=== PATIENT | female | born 1955 | race Caucasian/White ===

== ENCOUNTER 2018-02-25 09:50 | Emergency (ER) | payer MEDICARE, OTHER ==
[~2018-02-25] VITALS: Ht 157.5 cm; Wt 65.8 kg
[~2018-02-25 09:50] MED LIST: GLUCOPHAGE; HYDROCODONE-AP1 EAC1; NITROFURANTOIN; QUINAPRIL; TRICOR; Z.0.GLUCOPHAGE1000 M; Z.0.NEXIUM40 M1; Z.0.TRICOR145 MG; Z.0.URIBEL CAPSULE1; Z.1.NITROFURANTOIN10; [UNRECOGNIZED DRUG - OTHER]
--- OUTSIDE RECORDS SUMMARY | 2018-02-25 09:53 | XMS REPORT ---
Author Author [facility] Address Unknown Phone Unavailable Care Team Providers Care Woven Blind Loom Tender Name Role Phone AJIT WEISS Unavailable Unavailable Problems This patient has no known problems. Allergies, Adverse Reactions, Alerts This patient has no known allergies or adverse reactions. Medications This patient has no known medications. Results Test Description Test Time Test Comments Text Results Atomic Results Result Comments ABDOMEN-1VIEW (KUB) [place] [id number] Patient Name: NASIR BOOTH MR #: [id number] : 1955 Age/Sex: 61/F Req # : [id number] Adm Physician: Ordered by: AJIT WEISS MD Report #: [id number] Location: [facility] Room/Bed: Procedure: [id number] DX/ABDOMEN-1VIEW (KUB) Exam Date: 11/04/17 Exam Time : 1035 REPORT STATUS: Signed PROCEDURE: ABDOMEN-1VIEW (KUB) TECHNIQUE: Supine AP abdomen totaling 2 radiographs INDICATION: Calculus of kidney COMPARISON: [facility], DX, ABDOMEN-1VIEW (KUB), , 7:17. FINDINGS: Stable faint scattered renal calcifications consistent with medullary nephrocalcinosis. No definite focal nephrolithiasis. Normal bowel gas pattern. Multilevel degenerative disc disease with stable apex right scoliosis.. Cholecystectomy clips. CONCLUSION: Nephrocalcinosis without conspicuous focal nephrolithiasis. Dictated by: Shivani Prakash M.D. on 11/04/2017 at 11:09 Electronically approved by: Shivani Prakash M.D. on 11/04/2017 at 11:09 Dictated By: SHIVANI PRAKASH MD [id number] Transcribed By: KAMRON on 11/04/17 1109 COPY TO: AJIT WEISS MD
[2018-02-25] MEDS ORDERED: TRAMADOL HCL 50 MG TAB PO ONE (10:15)
[2018-02-25 16:15] VITALS: BP 177/81
== END 2018-02-25 14:11 | disposition home or self-care (01) ==
LOC: ER 09:50
DX: S83.412A Sprain of medial collateral ligament of left knee, initial encounter (principal); S83.422A Sprain of lateral collateral ligament of left knee, initial encounter; I82.5Z1 Chronic embolism and thrombosis of unspecified deep veins of right distal lower extremity; W18.30XA Fall on same level, unspecified, initial encounter; Y99.0 Civilian activity done for income or pay; E78.5 Hyperlipidemia, unspecified
CPT/HCPCS: 93970; 99283

== ENCOUNTER 2018-02-26 22:05 | Emergency (ER) | payer MEDICARE, OTHER ==
[~2018-02-26] VITALS: Ht 157.5 cm; Wt 65.8 kg
--- OUTSIDE RECORDS SUMMARY | 2018-02-26 22:08 | XMS REPORT | Continuity of Care Document ---
Author Author [facility] Organization [facility] Address [address] [place] [address] Phone Unavailable Care Team Providers Care Train System Operator Name Role Phone MARY ANNE MARTINEZ MD PCP Insurance Providers Guarantor Nasir Booth Address [address] [place] [address] Email [email or web address] Payer Medicare A & B Policy Number [id number] Subscriber's Name Nasir Booth Relationship 18 Self / Same As Patient Group Name [facility] Effective Date 13 Payer [facility] Policy Number [id number] Subscriber's Name DesireeNasir Relationship 18 Self / Same As Patient Group Name [place] Effective Date 01 Advance Directives Directive Response Recorded Date/Time Does the patient have an advance directive? No 11/29/11 12:05pm If yes, is advance directive on file with [facility]? No 11/29/11 12:05pm If not on file with [facility] will patient provide a copy? No 11/29/11 12:05pm Do you have a Directive to Physician? No 02/25/18 10:10am Do you have a Medical Power of Sales Broker? No 02/25/18 10:10am Do you have an out of hospital Do Not Resuscitate Order? No 02/25/18 10:10am Do you have any special needs we should be aware of? No 02/25/18 10:10am Do you have a support person here with you today? Yes 02/25/18 10:10am Did patient receive Notice of Privacy Practices? Yes 02/25/18 10:10am Did patient receive patient rights and responsibilities? Yes 02/25/18 10:10am Problems No problem information available. Medications Current Home Medications Medication Dose Units Route Directions Days Qty Instructions Start Date Fenofibrate Nanocrystallized (Tricor) 145 Mg Tablet Daily Metformin Hcl (Glucophage) 1,000 Mg Tablet Bid Quinapril/Hydrochlorothiazide (Accuretic 20-12.5 Mg Tablet) 1 Each Tablet Daily Social History Social History Problem Response Recorded Date/Time Onset Date Status Hx Psychiatric Problems No 11/29/2011 12:05pm Not Applicable Not Applicable Smoking Status Start Date Stop Date Never Smoker Hospital Discharge Instructions No hospital discharge instruction information available. Plan of Care Discharge Date 02/25/18 2:11pm Disposition HOME, SELF-CARE Condition at Discharge Stable Instructions/Education Provided Knee Overuse Forms Provided Work/School Excuse Prescriptions See Medication Section Referrals MARY ANNE MARTINEZ MD Address: [address] [place] [address] [address] [place] [address] MACK ZAVALA MD Address: [address] [place] [address] [address] [place] [address] Additional Instructions/Education 1. follow up with your doctor / orthopedic doctor in 1-2 days without fail 2. return to ed as needed Functional Status No functional status information available. Allergies, Adverse Reactions, Alerts No known allergies. Immunizations No immunization information available. Vital Signs Acute Vital Signs Vital Response Date/Time Pulse Pulse Rate (adult) 89 bpm (60 - 90) 02/25/2018 4:15pm Respiratory Rate 20 bpm (12 - 24) 02/25/2018 4:15pm Blood Pressure 177/81 mm Hg 02/25/2018 4:15pm Height 5 ft 2 in 02/25/2018 10:05am Weight 145 lb 02/25/2018 10:05am Body Mass Index 26.5 kg/m^2 02/25/2018 10:05am Results No relevant diagnostic test, laboratory data and/or discharge summary information available. Procedures No procedure information available. Encounters Encounter Location Arrival/Admit Date Discharge/Depart Date Attending Provider Departed Emergency Room [facility] 02/25/18 9:50am 2:11pm ANNETTE HOOKER MD Registered Clinic [facility] 11/04/17 10:28am AJIT WEISS MD Registered Clinic [facility] 06/12/17 7:02am AJIT WEISS MD
[2018-02-26 22:44] LABS: BASOPHILS % 0.5 % (0.0-1.0); EOSINOPHILS # (AUTO) 0.2 (0.0-0.4); EOSINOPHILS % 5.3 % (0.0-6.0); HEMATOCRIT 25.3 % (34.2-44.1); HEMOGLOBIN 8.4 g/dL (12.0-16.0); LYMPHOCYTES # (AUTO) 1.4 (1.0-3.2); LYMPHOCYTES % 32.1 % (18.0-39.1); MEAN CORPUSCULAR HEMOGLOBIN 29.9 pg (28-32); MEAN CORPUSCULAR HGB CONC 33.2 g/dL (31-35); MONOCYTES # (AUTO) 0.5 (0.2-0.8); MONOCYTES % 11.1 % (4.4-11.3); NEUTROPHILS # (AUTO) 2.2 (2.1-6.9); NEUTROPHILS % 50.3 % (38.7-80.0); PLATELET COUNT 330 x10e3/uL (140-360); RED BLOOD COUNT 2.81 x10e6/uL (3.6-5.1); RED CELL DISTRIBUTION WIDTH 14.8 % (11.7-14.4)
[2018-02-26 23:04] LABS: ALBUMIN 3.7 g/dL (3.5-5.0); ANION GAP 16.7 mmol/L (8-16); CALCIUM 9.3 mg/dL (8.4-10.2); CREATININE, SERUM 2.56 mg/dL (0.57-1.11); POTASSIUM 4.7 mmol/L (3.5-5.1)
[2018-02-26 23:09] VITALS: BP 170/85
== END 2018-02-26 23:16 | disposition home or self-care (01) ==
LOC: ER 22:05
DX: M19.071 Primary osteoarthritis, right ankle and foot (principal); I10 Essential (primary) hypertension; E11.9 Type 2 diabetes mellitus without complications; N18.9 Chronic kidney disease, unspecified
CPT/HCPCS: 36415; 80053; 85025; 99283

== ENCOUNTER 2018-03-07 02:15 | Inpatient (IN) | payer MEDICARE, OTHER ==
[~2018-03-07] VITALS: Ht 160 cm; Wt 64.9 kg
--- OUTSIDE RECORDS SUMMARY | 2018-03-07 02:19 | XMS REPORT | Continuity of Care Document ---
Author Author [facility] Organization [facility] Address [address] [place] [address] Phone Unavailable Care Team Providers Care Chemical Dependency Counselor Name Role Phone MARY ANNE MARTINEZ MD PCP Insurance Providers Guarantor Nasir Booth Address [address] [place] [address] Email [email or web address] Payer Medicare A & B Policy Number [id number] Subscriber's Name JaredpatrickNasir Relationship 18 Self / Same As Patient Group Name [facility] Effective Date 13 Payer [facility] Policy Number [id number] Subscriber's Name DesireeNasir Relationship 18 Self / Same As Patient Group Name [place] Effective Date 01 Advance Directives Directive Response Recorded Date/Time Does the patient have an advance directive? No 11/29/11 12:05pm If yes, is [facility]? No 11/29/11 12:05pm If not on file with [facility] will patient provide a copy? No 11/29/11 12:05pm Problems No problem information available. Medications Current [...] information available. Plan of Care Discharge Date 02/26/18 11:16pm Disposition HOME, SELF-CARE Condition at Discharge Stable Instructions/Education Provided Osteoarthritis Forms Provided Work/School Excuse Prescriptions See Medication Section Additional Instructions/Education FOLLOW UP WITH PRIMARY CARE PHYSICIAN Functional Status No functional status information available. Allergies, Adverse Reactions, Alerts No known allergies. Immunizations No immunization information available. Vital Signs Acute Vital Signs Vital Response Date/Time Temperature (Fahrenheit) 98.5 degrees F (97.6 - 99.5) 02/26/2018 11:09pm Pulse Pulse Rate (adult) 93 bpm (60 - 90) 02/26/2018 11:09pm Respiratory Rate 17 bpm (12 - 24) 02/26/2018 11:09pm Blood Pressure 170/85 mm Hg 02/26/2018 11:09pm Height 5 ft 2 in 02/26/2018 10:14pm Weight 145 lb 02/26/2018 10:14pm Body Mass Index 26.5 kg/m^2 02/26/2018 10:14pm Results Laboratory Results Test Name Result Units Flags Reference Collection Date/Time Result Date/ Time Comments White Blood Count 4.33 x10e3/uL L 4.8-10.8 02/26/2018 10:30pm 2017 10:47pm Red Blood Count 2.81 x10e6/uL L 3.6-5.1 02/26/2018 10:30pm 02/26/2018 10 :47pm Hemoglobin 8.4 g/dL L 12.0-16.0 02/26/2018 10:30pm 02/26/2018 10:47pm Hematocrit 25.3 % L 34.2-44.1 02/26/2018 10:30pm 02/26/2018 10:47pm Mean Corpuscular Volume 90.0 fL 81-99 02/26/2018 10:30pm 02/26/2018 10: 47pm Mean Corpuscular Hemoglobin 29.9 pg 28-32 02/26/2018 10:30pm 2017 10:47pm Mean Corpuscular Hemoglobin Concent 33.2 g/dL 31-35 02/26/2018 10:30pm 02/26/2018 10:47pm Red Cell Distribution Width 14.8 % H 11.7-14.4 02/26/2018 10:30pm 2017 10:47pm Platelet Count 330 x10e3/uL 140-360 02/26/2018 10:30pm 02/26/2018 10: 47pm Neutrophils (%) (Auto) 50.3 % 38.7-80.0 02/26/2018 10:30pm 02/26/2018 10:47pm Lymphocytes (%) (Auto) 32.1 % 18.0-39.1 02/26/2018 10:30pm 02/26/2018 10:47pm Monocytes (%) (Auto) 11.1 % 4.4-11.3 02/26/2018 10:30pm 02/26/2018 10: 47pm Eosinophils (%) (Auto) 5.3 % 0.0-6.0 02/26/2018 10:30pm 02/26/2018 10: 47pm Basophils (%) (Auto) 0.5 % 0.0-1.0 02/26/2018 10:30pm 02/26/2018 10: 47pm IM GRANULOCYTES % 0.7 % 0.0-1.0 02/26/2018 10:30pm 02/26/2018 10:47pm Neutrophils # (Auto) 2.2 2.1-6.9 02/26/2018 10:30pm 02/26/2018 10: 47pm Lymphocytes # (Auto) 1.4 1.0-3.2 02/26/2018 10:30pm 02/26/2018 10: 47pm Monocytes # (Auto) 0.5 0.2-0.8 02/26/2018 10:30pm 02/26/2018 10:47pm Eosinophils # (Auto) 0.2 0.0-0.4 02/26/2018 10:30pm 02/26/2018 10: 47pm Basophils # (Auto) 0.0 0.0-0.1 02/26/2018 10:30pm 02/26/2018 10:47pm Absolute Immature Granulocyte (auto 0.03 x10e3/uL 0-0.1 02/26/2018 10: 30pm 02/26/2018 10:47pm Sodium Level 137 mmol/L 136-145 02/26/2018 10:30pm 02/26/2018 11:05pm Potassium Level 4.7 mmol/L 3.5-5.1 02/26/2018 10:30pm 02/26/2018 11: 05pm Chloride Level 105 mmol/L 98-107 02/26/2018 10:30pm 02/26/2018 11:05pm Carbon Dioxide Level 20 mmol/L L 22-02/26/2018 10:30pm 02/26/2018 11: 05pm Anion Gap 16.7 mmol/L H 8-16 02/26/2018 10:30pm 02/26/2018 11:05pm Blood Urea Nitrogen 39 mg/dL H 7-02/26/2018 10:30pm 02/26/2018 11: 05pm Creatinine 2.56 mg/dL H 0.57-1.11 02/26/2018 10:30pm 02/26/2018 11:05pm BUN/Creatinine Ratio 15 6-02/26/2018 10:30pm 02/26/2018 11:05pm Estimat Glomerular Filtration Rate 19 ML/MIN L 60- 02/26/2018 10:30pm 11:05pm Ranges were taken from the National Kidney Disease Education Program and the National Kidney Foundation literature. Reference ranges: 60 or greater: Normal 16-59 (for 3 consecutive months): Chronic kidney disease 15 or less: Kidney failure Glucose Level 87 mg/dL 74-118 02/26/2018 10:30pm 02/26/2018 11:05pm Calcium Level 9.3 mg/dL 8.4-10.2 02/26/2018 10:30pm 02/26/2018 11:05pm Total Bilirubin 0.4 mg/dL 0.2-1.2 02/26/2018 10:30pm 02/26/2018 11: 05pm Aspartate Amino Transf (AST/SGOT) 30 IU/L 5-34 02/26/2018 10:30pm 02/26 11:05pm Alanine Aminotransferase (ALT/SGPT) 29 IU/L 0-55 02/26/2018 10:30pm 11:05pm Total Protein 7.5 g/dL 6.5-8.1 02/26/2018 10:30pm 02/26/2018 11:05pm Albumin 3.7 g/dL 3.5-5.0 02/26/2018 10:30pm 02/26/2018 11:05pm Globulin 3.8 g/dL H 2.3-3.5 02/26/2018 10:30pm 02/26/2018 11:05pm Albumin/Globulin Ratio 1.0 0.8-2.0 02/26/2018 10:30pm 02/26/2018 11: 05pm Alkaline Phosphatase 110 IU/L 40-150 02/26/2018 10:30pm 02/26/2018 11: 05pm Procedures No procedure information available. Encounters Encounter Location Arrival/Admit Date Discharge/Depart Date Attending Provider Departed Emergency Room [facility] 02/26/18 10:05pm 02/26 11:16pm LENNY KRUSE MD Departed Emergency Room [facility] 02/25/18 9:50am 2:11pm ANNETTE HOOKER MD Registered Clinic [facility] 11/04/17 10:28am AJIT WEISS MD Registered Clinic [facility] 06/12/17 7:02am AJIT WEISS MD
[2018-03-07] MEDS ORDERED: ACETAMINOPHEN 1000 MG/100 ML IV STA (02:25)
[2018-03-07] MEDS ORDERED: CEFTRIAXONE SOD 1 GM VIAL IV ONE (02:30)
[2018-03-07] MEDS ORDERED: SODIUM CHLORIDE 0.9% 1000ML 1,000 ML IV ONE ×2 (02:30→04:45)
[2018-03-07 02:47] LABS: BASOPHILS % 0.1 % (0.0-1.0); EOSINOPHILS % 0.1 % (0.0-6.0); HEMATOCRIT 25.1 % (34.2-44.1); HEMOGLOBIN 8.4 g/dL (12.0-16.0); LYMPHOCYTES # (AUTO) 0.2 (1.0-3.2); LYMPHOCYTES % 1.7 % (18.0-39.1); MEAN CORPUSCULAR HEMOGLOBIN 29.9 pg (28-32); MEAN CORPUSCULAR HGB CONC 33.5 g/dL (31-35); MEAN CORPUSCULAR VOLUME 89.3 fL (81-99); MONOCYTES # (AUTO) 0.5 (0.2-0.8); MONOCYTES % 3.8 % (4.4-11.3); NEUTROPHILS # (AUTO) 12.6 (2.1-6.9); NEUTROPHILS % 93.9 % (38.7-80.0); PLATELET COUNT 257 x10e3/uL (140-360); RED BLOOD COUNT 2.81 x10e6/uL (3.6-5.1); RED CELL DISTRIBUTION WIDTH 14.6 % (11.7-14.4)
[2018-03-07 03:01] LABS: CLARITY,URINE CLEAR (CLEAR); COLOR,URINE YELLOW (YELLOW)
[2018-03-07 03:02] LABS: BILIRUBIN,URINE NEGATIVE (NEGATIVE); EPITHELIAL CELLS,URINE FEW /LPF; KETONES,URINE NEGATIVE (NEGATIVE); LEUKOCYTE ESTERASE ,URINE NEGATIVE (NEGATIVE); NITRITE,URINE NEGATIVE (NEGATIVE); PROTEIN,URINE DIPSTICK 3+ (NEGATIVE); RBC,URINE 0-5 /HPF (0-5); URINE UROBILINOGEN 0.2 mg/dL (0.2 - 1); WBC,URINE (MAN) 0-5 /HPF (0-5)
[2018-03-07 03:05] LABS: ALBUMIN 3.5 g/dL (3.5-5.0); ANION GAP 17.9 mmol/L (8-16); CALCIUM 9.2 mg/dL (8.4-10.2); CREATININE, SERUM 2.34 mg/dL (0.57-1.11); POTASSIUM 4.9 mmol/L (3.5-5.1)
[2018-03-07 03:11] LABS: ALBUMIN/GLOBULIN RATIO 0.9 (0.8-2.0)
[2018-03-07 03:12] LABS: CREATINE KINASE MB 1.2 ng/mL (0-5.0)
[2018-03-07] MEDS ORDERED: SODIUM CHLORIDE 0.9% 1000ML 1,000 ML ONE (04:39)
--- NOTE | 2018-03-07 05:00 | Diagnostic Imaging Report ---
EXAMINATION: CHEST SINGLE (PORTABLE) INDICATION: Fever. COMPARISON: None FINDINGS: TUBES and LINES: None. LUNGS: Lungs are well inflated. Lungs are clear. There is no evidence of pneumonia or pulmonary edema. PLEURA: No pleural effusion or pneumothorax. HEART AND MEDIASTINUM: The cardiomediastinal silhouette is unremarkable. BONES AND SOFT TISSUES: No acute osseous lesion. Soft tissues are unremarkable. UPPER ABDOMEN: No free air under the diaphragm. IMPRESSION: No acute thoracic abnormality. Signed by: Dr. Talha Todd M.D. on 03/07/2018 4:57 AM
--- NOTE | 2018-03-07 05:05 | Diagnostic Imaging Report ---
EXAM: CT Abdomen and Pelvis WITHOUT contrast INDICATION: Left flank pain. COMPARISON: 05/19/2012 TECHNIQUE: Abdomen and pelvis were scanned utilizing a multidetector helical scanner from the lung base to the pubic symphysis without administration of IV contrast. Absence of intravenous contrast decreases sensitivity for detection of focal lesions and vascular pathology. Coronal and sagittal reformations were obtained. Stone protocol is performed. IV CONTRAST: None. ORAL CONTRAST: Water RADIATION DOSE: Total DLP: 471.91 mGy*cm Estimated effective dose: (DLP x 0.015 x size factor) mSv COMPLICATIONS: None FINDINGS: LINES and TUBES: None. LOWER THORAX: Unremarkable HEPATOBILIARY: No focal hepatic lesions. No biliary ductal dilation. GALLBLADDER: There are cholecystectomy clips. SPLEEN: No splenomegaly. PANCREAS: No focal masses or ductal dilatation. ADRENALS: No adrenal nodules KIDNEYS/URETERS: No hydronephrosis. No cystic or solid mass lesions. Hyperdensity throughout the level of the renal pyramids compatible with Nephrocalcinosis bilaterally. At the tip of each care met, there are calcific densities compatible with developing stones ranging between 2 and 3 mm in diameter. GI TRACT: No abnormal distention, wall thickening, or evidence of bowel obstruction. There are diverticula within the colon without evidence of diverticulitis. Appendix is normal. PELVIC ORGANS/BLADDER: Right adnexal mass measuring 8.2 x 5.4 cm in diameter with areas of irregular calcification and internal septations measuring 28HU LYMPH NODES: No lymphadenopathy. VESSELS: There is mild atherosclerotic disease in the aorta and major arterial branches. PERITONEUM / RETROPERITONEUM: No free air or fluid. BONES: There are degenerative changes in the lumbar spine. SOFT TISSUES: Unremarkable. IMPRESSION: 1. Bilateral nephrocalcinosis with developing stones ranging between 2 and 3 mm in diameter. No evidence of hydronephrosis. 2. Right adnexal mass, indeterminate. Pelvic ultrasound is recommended Signed by: Dr. Talha Todd M.D. on 03/07/2018 5:02 AM
[2018-03-07] MEDS ORDERED: VANCOMYCIN 1GM/NS 250 ML 250 ML IV STA (06:50)
[2018-03-07] MEDS ORDERED: METRONIDAZOLE 500MG/NS 100ML 100 ML IV STA (06:50)
--- NOTE | 2018-03-07 07:00 | Diagnostic Imaging Report ---
EXAM: Transabdominal and Transvaginal Pelvic Ultrasound INDICATION: Right adnexal mass COMPARISON: CT of the abdomen and pelvis on 03/07/2018 and 05/19/2012 TECHNIQUE: Grayscale transverse and sagittal transabdominal and transvaginal images were obtained of the pelvis. Transvaginal imaging was medically necessary to better evaluate the endometrium and the adnexa. CLINICAL HISTORY: 62 year old A0; last menstrual period: Postmenopausal. FINDINGS: Uterus Orientation: Normal Size: 9.6 x 5.1 x 6.7 cm, Normal Mass: None Cervix: Normal Endometrium: Thickness: 1.3 cm, Normal. Appearance: Homogeneous echotexture without focal thickening. Right ovary: Not well visualized. Left ovary: Size: 3.9 x 2.4 x 2.7 cm Mass/Cyst: None Adnexa: Within the left adnexum, there is a cystic mass with linear septations and calcifications measuring 11.6 x 6.1 x 9.5 cm with the largest cystic component measuring 7 x 5.2 x 6.6 cm Cul-de-sac: No free fluid IMPRESSION: Cystic lesion in the right adnexum is suspicious for a large para ovarian cyst versus cystic ovarian neoplasm. Full CLICKER OPERATOR workup is recommended including pelvic MRI with and without contrast for identification of the right ovary. Signed by: Dr. Talha Todd M.D. on 03/07/2018 6:56 AM
[2018-03-07] MEDS ORDERED: ONDANSETRON HCL INJ 2 MG/ML VIAL IV PRN (07:30)
[2018-03-07] MEDS ORDERED: SODIUM CHLORIDE FLUSH 10 ML SYR INJ PRN (07:30)
[2018-03-07 09:10] VITALS: BP 163/72
--- NOTE | 2018-03-07 09:24 | History and Physical ---
Ms. Ramírez is a 62-year-old female with a history of diabetes, hypertension, hyperlipidemia, chronic kidney disease, history of kidney stones in the past, started like 2-3 weeks ago with lower extremity pain and difficulty walking. Bilateral arterial Doppler was negative. Had a CT of the lumbar spine that showed some spinal stenosis at L4-L5. Brought to the emergency room yesterday complaining of severe low back pain. PAST MEDICAL HISTORY: She has diabetes, hypertension, hyperlipidemia, chronic kidney disease, history of kidney stones. ALLERGIES: NO KNOWN DRUG ALLERGIES. SOCIAL HISTORY: She does not smoke. She does not drink. She lives at home with her family. SURGICAL HISTORY: , surgery for kidney stones and cholecystectomy. PHYSICAL EXAMINATION GENERAL: Today, she is awake. VITALS: Temperature is 98.8, blood pressure 110/57. HEART: Regular rate. LUNGS: Clear to auscultation. ABDOMEN: Distended and soft. BLOOD WORK: White count is 13.47, hemoglobin 8.4, hematocrit 25.1. Potassium is 4.9, creatinine 2.34. GFR is 21. Liver enzymes are elevated at 289 and ALT is 87. Urine shows some trace of blood. Urine cultures and blood cultures are pending. Pelvic ultrasound shows cystic lesion in the right ovary. Rule out cystic versus neoplasm. She had a chest x-ray that shows no acute findings. She had an abdominal and pelvic CT that showed bilateral nephrocalcinosis with stones measuring 2-3 mm in diameter. No hydronephrosis. She has a right adnexal mass. ASSESSMENT AND PLAN 1. Severe low back pain and lower extremity pain: Rule out spinal stenosis. 2. Right ovarian mass. 3. Chronic kidney disease, stage 4. 4. Anemia, probably secondary to chronic kidney disease. 5. Leukocytosis, not very clear the etiology. PLAN: Admit the patient to the hospital. We are going to get an SAMPLE GRINDER with Dr. Cortez. We are going to get an infectious disease consult with Dr. Murphy. We are going to get a renal consult with Dr. Lan. We are going to restart some of her home medications. She received 1 g of Rocephin in the emergency room. She is on Zofran for nausea and vomiting. We are going to put her on an ADA diet and sliding scale with insulin. All of this was discussed with the patient. All questions were answered to satisfaction. Will continue to monitor her. We are going to request also an MRI of the lumbar spine and pelvis. Job#: [id number] [place]
[2018-03-07 09:36] VITALS: BP 163/72
--- NOTE | 2018-03-07 11:08 | Consultation ---
DATE OF CONSULTATION: March 07, 2018 REASON FOR CONSULTATION: Fever. This is a 62-year-old white female who has a history of diabetes mellitus, hypertension, hyperlipidemia, chronic kidney disease, renal stones in the past, status post surgery in the past. This patient for the last 3 weeks or so has been having lower extremity pain, bilateral and difficulty walking. The pain started from the back going down. The patient has been seeing her physician as an outpatient. She had a Doppler which was negative. She had CT of the lumbar spine that showed spinal stenosis L4-L5. She had severe back pain. CT of the abdomen and pelvis was done, and showed there is a pelvic mass. Infectious disease was consulted because she was running fever. This patient does feel when the fever comes on. She was told she had fever she said. She denied any other symptoms besides the pain in the legs, which seems to be getting better with her pain medication while she is here. She is also having some difficulty walking. PAST MEDICAL HISTORY: Diabetes mellitus, hypertension, hyperlipidemia, kidney stones, chronic kidney disease. PAST SURGICAL HISTORY: . She had knee kidney surgery for her kidney stone. ALLERGIES: NKA. SOCIAL HISTORY: There is no smoking, drug abuse or alcohol abuse. FAMILY HISTORY: Hypertension. REVIEW OF SYSTEMS GENERAL: She is generally feeling fair. There is no fever. No chills that she can feel. No night sweats. HEENT: There is no headache or visual changes or hearing changes. GI: There is no nausea. No vomiting. No diarrhea. CARDIAC: There is no arrhythmia. NEURO: No seizure activity. SKIN: There is no rash. LABORATORY DATA: Reviewed. White count 13.47, hemoglobin 8.4 and her platelets are 257,000. Sodium 139, potassium 4.9, creatinine 2.34. Bilirubin 1.4, AST 289. Blood cultures and urine cultures still pending. Her CT of the abdomen and pelvis showed bilateral nephrocalcinosis with developing stones ranging between 2-3 mm. Right adnexal mass. Pelvic ultrasound is recommended. Pelvic ultrasound was done and showed the cystic lesion in the right adnexa suspicious for large paraovarian cyst versus ovarian neoplasm. She had a chest x-ray with no acute significant abnormality. IMPRESSION 1. Fever on admission. I think it is very suspicious that the patient has malignancy. Clinically, it is very suggestive of it. I would suggest while we wait for the blood cultures and urine cultures to start on Rocephin and discontinue all other antibiotics. 2. Ovarian cyst: Suggest TRAUMA MANAGER evaluation. 3. Elevated liver enzymes: Concerned intrahepatic obstruction. 4. Chronic kidney disease. 5. Anemia of chronic disease. Will discuss with Dr. Martel. Thank you for asking me to see this patient. Job#: [id number] RI
[2018-03-07] MEDS ORDERED: SODIUM BICARBONATE IV SCH (12:15)
[2018-03-07] MEDS ORDERED: SODIUM CHLORIDE IV SCH (12:15)
[2018-03-07 12:16] VITALS: BP 155/72
[2018-03-07] MEDS ORDERED: TRAMADOL HCL 50 MG TAB PO ONE (12:30)
[2018-03-07] MEDS ORDERED: SODIUM BICARBONATE 8.4% 75 ML in SODIUM CHLORIDE 0.45% 1,000 ML IV SCH (13:00)
[2018-03-07] MEDS ORDERED: DEXTROSE 50% SYRINGE 50 ML IV PRN (13:45)
[2018-03-07] MEDS ORDERED: HYDROCODONE/APAP 5MG-325MG TAB PO PRN (13:45)
--- NOTE | 2018-03-07 13:45 | Diagnostic Imaging Report ---
MRI of the pelvis without contrast. History: Pelvic pain. Back pain. Fever. Technique: Multiplanar multisequence MRI of the pelvis without contrast. Findings: There is no acute fracture, subluxation or avascular necrosis. Scattered degenerative changes are seen. No osseous erosion. There is a large anterior abdominal wall hernia containing bowel and mesentery. There is an 8.1 cm heterogeneous mass in the right anterior lower abdomen/upper pelvis best seen on series 3 image 17. This is located 2.4 cm deep to the skin surface. This appears to contain a portion of fat signal intensity and may be associated with the right ovary/right adnexa. A pelvic ultrasound with attention to this region is recommended. The urinary bladder and remainder of the visualized pelvic structures are unremarkable. No free pelvic fluid or pelvic lymphadenopathy is seen. There is what appears to be a small left adnexal complex cyst best seen on series 3 image 30. There is diffuse muscle atrophy. The visualized neurovascular structures are intact. Impression: 8.1 cm heterogeneous mass right anterior lower abdomen/upper pelvis may be associated with the right ovary/right adnexa. This could be due to a dermoid. A pelvic ultrasound with attention to this region is recommended. No acute fracture, subluxation or avascular process about the pelvis. Large anterior lower abdominal wall hernia. Signed by: Dr. Qasim Veloz M.D. on 03/07/2018 1:42 PM
--- NOTE | 2018-03-07 14:26 | Diagnostic Imaging Report ---
EXAM: Transabdominal and Transvaginal Pelvic Ultrasound INDICATION: Right adnexal mass COMPARISON: CT of the abdomen and pelvis on 03/07/2018 and 05/19/2012 TECHNIQUE: Grayscale transverse and sagittal transabdominal and transvaginal images were obtained of the pelvis. Transvaginal imaging was medically necessary to better evaluate the endometrium and the adnexa. CLINICAL HISTORY: 62 year old A0; last menstrual period: Postmenopausal. FINDINGS: Uterus Orientation: Normal Size: 9.6 x 5.1 x 6.7 cm, Normal Mass: None Cervix: Normal Endometrium: Thickness: 1.3 cm, Normal. Appearance: Homogeneous echotexture without focal thickening. Right ovary: Not well visualized. Left ovary: Size: 3.9 x 2.4 x 2.7 cm Mass/Cyst: None Adnexa: Within the left adnexum, there is a cystic mass with linear septations and calcifications measuring 11.6 x 6.1 x 9.5 cm with the largest cystic component measuring 7 x 5.2 x 6.6 cm Cul-de-sac: No free fluid IMPRESSION: Cystic lesion in the right adnexum is suspicious for a large para ovarian cyst versus cystic ovarian neoplasm. Full PATTERN STAMPER workup is recommended including pelvic MRI with and without contrast for identification of the right ovary. Signed by: Dr. Talha Todd M.D. on 03/07/2018 6:56 AM
--- NOTE | 2018-03-07 14:46 | Consultation ---
DATE OF CONSULTATION: March 07, 2018 NEPHROLOGY CONSULTATION REASON FOR CONSULTATION: Chronic kidney disease. This is a very pleasant, 62-year-old female who is known to have multiple medical problems including hypertension, diabetes, and dyslipidemia for which she takes metformin, and she is on MARIZA inhibitor quinapril with hydrochlorothiazide for blood pressure control. She follows with Dr. Martel as an outpatient. Lately, she has been told that she is having chronic kidney disease between stage 3 and 4. She does not recall her baseline creatinine. She was referred to us in clinic as an outpatient. Today was her appointment, but she could not make it as she came to the ER complaining of back pain and subjective fever. She has been taking Lyrica for pain and Tylenol Extra Strength but avoiding nonsteroidal anti-inflammatory drugs. The pain was still there, and she came for further evaluation for which imaging showed that she has spinal stenosis at L4-L5. However, also, the pelvic ultrasound showed ovarian cyst and possible mass. She had an abdomen and pelvis CT without contrast that showed bilateral nephrocalcinosis and right adnexal mass. The patient is known to have nephrolithiasis for which she follows with Dr. Alcantara. She is status post lithotripsy, and she is status post in the past surgical resection of a big kidney stone in the left ureter. We are consulted given her creatinine is elevated. Going back in the records, she had creatinine of 2.56 in January. Today her creatinine is 2.34. PAST MEDICAL HISTORY: As mentioned above. PAST SURGICAL HISTORY: Status post cholecystectomy. Status post . Status post kidney stone removal. FAMILY HISTORY: Positive for hypertension. SOCIAL HISTORY: Denies smoking, alcohol or IV drug abuse. ALLERGIES: NEGATIVE PER RECORDS. PHYSICAL EXAMINATION VITALS: Blood pressure 163/72, heart rate 96, temperature 97.7. GENERAL APPEARANCE: No acute distress times 3. HEAD, EARS, EYES, NECK: No lymphadenopathy. HEART: Regular rate and rhythm. LUNGS: Bilateral air entry. ABDOMEN: Soft, nontender. EXTREMITIES: No edema. LABS: Hemoglobin is 8.4, white count 13.47. Sodium 139, potassium 4.9, BUN 62, creatinine 2.3. Lactic acid 13.6. AST and ALT are elevated. Albumin is 3.5. Chest x-ray is okay and clear. CT is as mentioned above. Urine is positive for protein. ASSESSMENT AND PLAN 1. Acute kidney injury versus chronic kidney disease. I suspect she has chronic kidney disease secondary to diabetic nephropathy. She was told as an outpatient by Dr. Martel she has stage 3 to 4 chronic kidney disease. Will try to get the record. In the meantime, last month her creatinine was 2.56, today is 2.34, which is considered close probably to her baseline. In the meantime, we are going to hold MARIZA inhibitor and hydrochlorothiazide. We are going to give gentle IV hydration and monitor her kidney function and urine output closely. Check fractional excretion of sodium. Check urine culture and renal ultrasound given history of nephrolithiasis, although the CT scan showed no hydronephrosis. We will hold metformin in the meantime. 2. Electrolytes. Potassium is 4.9. Educated about low potassium diet. Make diet renal. 3. Metabolic acidosis. I am holding metformin and in the meantime giving IV bicarb with IV fluids overnight. 4. Hypertension. Holding MARIZA inhibitor and hydrochlorothiazide until creatinine plateaus. I discussed with the patient if her creatinine is stable at baseline in the next couple of days, we will put her back on MARIZA inhibitor. In the meantime, we can add calcium channel alfonzo or beta alfonzo for blood pressure control. 5. Anemia of chronic disease. Hemoglobin 8.4. Check iron stores and stool occult. 6. Proteinuria. We will check urine protein to creatinine ratio. Check serum protein electrophoresis. 7. Diabetes. Will take off metformin and put her sliding scale per primary team. 8. Back pain with stenosis. Avoid nonsteroidal anti-inflammatory drugs. 9. Right adnexal mass suspicious for malignancy. Patient is having subjective fever for which infectious disease is consulted, and blood culture has been sent. It could be malignancy. Oncology has been consulted on the case. Thank you for the consult. We will update the primary team for further recommendations. Job#: [id number]
--- NOTE | 2018-03-07 14:50 | Diagnostic Imaging Report ---
History:Evaluate for malignant neoplasm Comparison studies: None Technique: Sagittal T1, T2 and STIR without contrast; axial and coronal T2. Findings: Curvature: Normal kyphosis. Levoscoliosis of the thoracolumbar junction. Paraspinal soft tissues: No signal abnormalities. Spinal cord: Normal in size and signal intensity through the tip of the conus at T12-L1 . Vertebrae: Normal in height and signal intensity. No fractures, infection or neoplasm. Disk spaces: Normal in height and signal intensity. Disk herniations: Diffuse disc degeneration with loss of T2 signal Foramina: Patent. Spinal canal: Patent. Partially visualized 1.5 cm right renal cyst. IMPRESSION: 1. No neoplastic process is seen at the thoracic spine. 2. Mild disc degeneration with grossly patent canal and foramina Signed by: DR Sujit Washington M.D. on 03/07/2018 2:46 PM
[2018-03-07 14:58] LABS: CREATININE,URINE RANDOM 24.81 mg/dL (47-110); SODIUM,URINE 91 mmol/L; TOTAL PROTEIN, URINE 127.8 mg/dL (1-14)
[2018-03-07 16:16] LABS: EOSINOPHIL SMEAR,URINE NONE SEEN (NONE SEEN)
[2018-03-07] MEDS: SODIUM BICARBONATE 8.4% 75 ML in SODIUM CHLORIDE 0.45% 1,000 ML IV SCH (16:25)
[2018-03-07 16:40] VITALS: BP 152/69
[2018-03-07] MEDS ORDERED: CARVEDILOL 12.5 MG TAB PO SCH (17:00)
--- NOTE | 2018-03-07 17:25 | Diagnostic Imaging Report ---
PROCEDURE:US RETROPERITONEAL ( KIDNEY ). COMPARISON:[facility], CT, CT ABDOMEN/PELVIS WO, 03/07/2018, 3:16. MR, MRI SPINE LUMBAR WO, 03/07/2018, 7:24. INDICATIONS:NEVA TECHNIQUE: Nguyen-scale and color sonographic images of the bilateral kidneys and bladder where obtained in transverse and longitudinal planes. FINDINGS: RIGHT KIDNEY: 10.3 cm, cortex 1.2 cm Cysts: Stable 1.4 x 1.0 x 1.2 cm cystic anechoic lesion in the superior pole Solid masses: None Stones: None Hydronephrosis: None Echogenicity: Increased LEFT KIDNEY: 13.4 cm, cortex 1.3 cm Cysts: None Solid masses: None Stones: None Hydronephrosis: Mild hydronephrosis. Echogenicity: Increased Bladder: No focal lesions. Bilateral ureteral jets are identified. CONCLUSION: 1. Increased bilateral renal cortical echogenicity, consistent with medical renal disease. 2. Mild left hydronephrosis. 3. Stable 1.4 cm simple cyst in the superior pole of the right kidney. Leroy Al M.D. Dictated by: Leroy Al M.D. on 03/07/2018 at 17:25 Electronically approved by: Leroy Al M.D. on 03/07/2018 at 17:25
[2018-03-07] MEDS ORDERED: MEROPENEM 500MG 500 MG in SODIUM CHLORIDE 0.9% 50ML 50 ML IV SCH (18:00)
[2018-03-07] MEDS: INSULIN REGULAR, HUMAN 100 UNIT/1 ML 3ML VIAL SQ SCH ×2 (18:00→21:00)
[2018-03-07] MEDS: MEROPENEM 500 MG VIAL IV SCH (18:05)
[2018-03-07] MEDS: CARVEDILOL 12.5 MG TAB PO SCH (18:05)
[2018-03-07] MEDS ORDERED: NICOTINE POLACRILEX 2 MG LOZG #24 MM PRN (18:15)
[2018-03-07] MEDS ORDERED: CEPACOL SORE THROAT LOZENGES PO PRN (18:15)
[2018-03-07 19:20] VITALS: BP 134/58
[2018-03-07 20:00] VITALS: BP 134/58
--- NOTE | 2018-03-07 20:28 | Diagnostic Imaging Report ---
EXAMINATION: MRI of the lumbar spine without contrast HISTORY: Low back pain for the last 3 weeks, fever, evaluate for infection, neoplasm COMPARISON: Abdomen CT performed 05/19/2012 and 4617 TECHNIQUE: Sagittal T1, T2, STIR; axial T2 and proton density. Image quality: Motion artifact limits evaluation of some of the sequences FINDINGS: It is assumed that there are 5 lumbar vertebrae. Curvature/Alignment: Normal lordosis. Mild levoscoliosis. Vertebrae: No evidence of recent fracture, infection, or neoplasm. Conus: Normal, terminating at L1 Cauda equina: Unremarkable. Lower thoracic: Asymmetric to the right disc osteophyte at T12-L1 with mild to moderate right foraminal stenoses. Paraspinal soft tissues: Severe atrophy of the paraspinal muscles. The visualized T2 hyperintense probable cyst in the right kidney, please see dictation of abdominal CT performed on the same date regarding the canal Degenerative changes: L1-L2: Asymmetric to right disc bulge, marginal endplate osteophyte and facet processes. Minimal right foraminal narrowing. L2-L3: Minimal symmetric disc bulge without canal or foraminal stenoses L3-L4: Asymmetric to the right disc pole which in the lateral facet arthrosis. Moderate right foraminal stenoses L4-L5: Asymmetric to right disc bulge, ligamenta flava thickening and a by facet arthrosis. Severe spinal canal stenosis. Moderately severe foraminal stenosis bilaterally. Grade 1 anterolisthesis. L5-S1: Mild symmetric disc bulge, moderate facet arthrosis. Mild left foraminal stenoses. Sacroiliac joints: Mild degenerative changes bilaterally IMPRESSION: 1. No evidence of spine infection or neoplasm. 2. Persistent grade 1 degenerative anterolisthesis at L4-L5 and lumbar spine with scoliosis. 3. Severe degenerative spinal canal and moderately severe foraminal stenosis at L4-L5. 4. Moderate degenerative foraminal stenoses on the right at L3-L4. Signed by: Dr. Bibiana Campoverde M.D. on 03/07/2018 8:25 PM
[2018-03-08] VITALS (8 sets, daily range): BP systolic 108–154; BP diastolic 55–72
[2018-03-08] MEDS: MEROPENEM 500 MG VIAL IV SCH ×4 (00:25→17:55)
[2018-03-08] MEDS: SODIUM BICARBONATE 8.4% 75 ML in SODIUM CHLORIDE 0.45% 1,000 ML IV SCH (05:24)
[2018-03-08 07:18] LABS: BASOPHILS % 0.2 % (0.0-1.0); EOSINOPHILS # (AUTO) 0.1 (0.0-0.4); EOSINOPHILS % 1.9 % (0.0-6.0); LYMPHOCYTES # (AUTO) 0.7 (1.0-3.2); MEAN CORPUSCULAR HEMOGLOBIN 30.2 pg (28-32); MEAN CORPUSCULAR VOLUME 91.7 fL (81-99); MONOCYTES # (AUTO) 0.3 (0.2-0.8); MONOCYTES % 6.1 % (4.4-11.3); NEUTROPHILS # (AUTO) 4.2 (2.1-6.9); NEUTROPHILS % 78.2 % (38.7-80.0); PLATELET COUNT 193 x10e3/uL (140-360); RED BLOOD COUNT 2.05 x10e6/uL (3.6-5.1); RED CELL DISTRIBUTION WIDTH 14.9 % (11.7-14.4)
[2018-03-08] MEDS: INSULIN REGULAR, HUMAN 100 UNIT/1 ML 3ML VIAL SQ SCH ×4 (07:30→21:07)
[2018-03-08 07:43] LABS: ANION GAP 13.2 mmol/L (8-16); CALCIUM 7.9 mg/dL (8.4-10.2); CREATININE, SERUM 1.82 mg/dL (0.57-1.11); POTASSIUM 4.2 mmol/L (3.5-5.1)
[2018-03-08 07:46] LABS: HEMATOCRIT 18.8 % (34.2-44.1); HEMOGLOBIN 6.2 g/dL (12.0-16.0)
[2018-03-08 08:05] LABS: PHOSPHORUS 3.7 MG/DL (2.3-4.7)
[2018-03-08 08:20] LABS: MAGNESIUM 0.9 MG/DL (1.3-2.1)
[2018-03-08] MEDS ORDERED: SODIUM CHLORIDE 0.9% 250ML 250 ML IV ONE (08:30)
[2018-03-08] MEDS ORDERED: MAGNESIUM SULFATE 2GM/50ML 100 ML IV ONE (09:00)
[2018-03-08] MEDS: CARVEDILOL 12.5 MG TAB PO SCH ×2 (09:39→16:35)
[2018-03-08] MEDS: HYDROCODONE/APAP 5MG-325MG TAB PO PRN ×2 (09:40→21:09)
[2018-03-08 10:40] LABS: FERRITIN 166.67 ng/mL (4.63-204.00)
[2018-03-08 11:45] LABS: BASOPHILS % 0.2 % (0.0-1.0); EOSINOPHILS # (AUTO) 0.1 (0.0-0.4); EOSINOPHILS % 0.9 % (0.0-6.0); LYMPHOCYTES # (AUTO) 0.6 (1.0-3.2); LYMPHOCYTES % 10.7 % (18.0-39.1); MEAN CORPUSCULAR HGB CONC 32.8 g/dL (31-35); MEAN CORPUSCULAR VOLUME 91.4 fL (81-99); MONOCYTES # (AUTO) 0.4 (0.2-0.8); MONOCYTES % 6.5 % (4.4-11.3); NEUTROPHILS # (AUTO) 4.4 (2.1-6.9); PLATELET COUNT 174 x10e3/uL (140-360); RED CELL DISTRIBUTION WIDTH 14.8 % (11.7-14.4)
[2018-03-08 11:51] LABS: HEMATOCRIT 19.2 % (34.2-44.1); HEMOGLOBIN 6.3 g/dL (12.0-16.0)
[2018-03-08] MEDS ORDERED: SODIUM CHLORIDE 0.9% 250ML 250 ML ONE ×2 (11:58→17:30)
[2018-03-08 12:32] LABS: BAND NEUTROPHILS % (MANUAL) 1 %; EOSINOPHILS % (MANUAL) 2 % (0-7); LYMPHOCYTES % (MANUAL) 6 % (19-48); MONOCYTES % (MANUAL) 2 % (3.4-9.0); NEUTROPHILS % (MANUAL) 89 % (40-74)
[2018-03-08 12:33] LABS: ANISOCYTOSIS SLIGHT; HYPOCHROMASIA SLIGHT; PLATELET ESTIMATE ADEQUATE; PLATELET MORPHOLOGY COMMENT NORMAL; RBC MORPHOLOGY COMMENT NORMAL
[2018-03-08] MEDS ORDERED: LEVOFLOXACIN 250MG/D5W 50ML 50 ML IV SCH (14:45)
[2018-03-09] VITALS (8 sets, daily range): BP systolic 136–166; BP diastolic 65–83
[2018-03-09] MEDS: MEROPENEM 500 MG VIAL IV SCH ×2 (00:55→05:31)
[2018-03-09 01:32] LABS: HEMATOCRIT 24.7 % (34.2-44.1); HEMOGLOBIN 8.6 g/dL (12.0-16.0)
[2018-03-09] MEDS: SODIUM BICARBONATE 8.4% 75 ML in SODIUM CHLORIDE 0.45% 1,000 ML IV SCH ×2 (02:36→17:58)
[2018-03-09] MEDS: HYDROCODONE/APAP 5MG-325MG TAB PO PRN (04:20)
[2018-03-09] MEDS: INSULIN REGULAR, HUMAN 100 UNIT/1 ML 3ML VIAL SQ SCH ×4 (07:30→20:19)
[2018-03-09 08:02] LABS: BASOPHILS % 0.2 % (0.0-1.0); EOSINOPHILS # (AUTO) 0.1 (0.0-0.4); HEMATOCRIT 27.8 % (34.2-44.1); HEMOGLOBIN 9.3 g/dL (12.0-16.0); LYMPHOCYTES # (AUTO) 0.7 (1.0-3.2); LYMPHOCYTES % 12.1 % (18.0-39.1); MEAN CORPUSCULAR HEMOGLOBIN 29.4 pg (28-32); MEAN CORPUSCULAR HGB CONC 33.5 g/dL (31-35); MONOCYTES # (AUTO) 0.5 (0.2-0.8); MONOCYTES % 8.8 % (4.4-11.3); NEUTROPHILS # (AUTO) 4.6 (2.1-6.9); NEUTROPHILS % 76.2 % (38.7-80.0); PLATELET COUNT 198 x10e3/uL (140-360); RED BLOOD COUNT 3.16 x10e6/uL (3.6-5.1); RED CELL DISTRIBUTION WIDTH 16.1 % (11.7-14.4)
[2018-03-09 08:43] LABS: ALBUMIN 2.6 g/dL (3.5-5.0); ALBUMIN/GLOBULIN RATIO 0.8 (0.8-2.0); ANION GAP 11.4 mmol/L (8-16); CALCIUM 8.6 mg/dL (8.4-10.2); CREATININE, SERUM 1.8 mg/dL (0.57-1.11); POTASSIUM 4.4 mmol/L (3.5-5.1)
[2018-03-09] MEDS: CARVEDILOL 12.5 MG TAB PO SCH ×2 (08:55→16:16)
[2018-03-09] MEDS ORDERED: CEFAZOLIN SOD 1 GM/NS 50ML 50 ML IV SCH (14:00)
[2018-03-09] MEDS: CEFAZOLIN SOD 1 GM VIAL IV SCH ×2 (14:41→22:30)
[2018-03-10 00:09] VITALS: BP 156/88
[2018-03-10] MEDS: HYDROCODONE/APAP 5MG-325MG TAB PO PRN (02:01)
[2018-03-10 04:00] VITALS: BP 169/81
[2018-03-10] MEDS: SODIUM BICARBONATE 8.4% 75 ML in SODIUM CHLORIDE 0.45% 1,000 ML IV SCH (04:49)
[2018-03-10] MEDS: CEFAZOLIN SOD 1 GM VIAL IV SCH ×4 (04:49→22:36)
[2018-03-10 07:27] LABS: BASOPHILS % 0.4 % (0.0-1.0); EOSINOPHILS # (AUTO) 0.2 (0.0-0.4); EOSINOPHILS % 3.2 % (0.0-6.0); HEMATOCRIT 27.5 % (34.2-44.1); HEMOGLOBIN 9.1 g/dL (12.0-16.0); LYMPHOCYTES # (AUTO) 0.9 (1.0-3.2); LYMPHOCYTES % 19.8 % (18.0-39.1); MEAN CORPUSCULAR HEMOGLOBIN 29.7 pg (28-32); MEAN CORPUSCULAR HGB CONC 33.1 g/dL (31-35); MEAN CORPUSCULAR VOLUME 89.9 fL (81-99); MONOCYTES # (AUTO) 0.6 (0.2-0.8); MONOCYTES % 12.2 % (4.4-11.3); NEUTROPHILS # (AUTO) 3.1 (2.1-6.9); NEUTROPHILS % 64.2 % (38.7-80.0); PLATELET COUNT 198 x10e3/uL (140-360); RED BLOOD COUNT 3.06 x10e6/uL (3.6-5.1); RED CELL DISTRIBUTION WIDTH 15.6 % (11.7-14.4)
[2018-03-10] MEDS: INSULIN REGULAR, HUMAN 100 UNIT/1 ML 3ML VIAL SQ SCH ×4 (07:30→22:37)
[2018-03-10 07:46] LABS: ANION GAP 12.2 mmol/L (8-16); CALCIUM 8.8 mg/dL (8.4-10.2); CREATININE, SERUM 1.67 mg/dL (0.57-1.11); POTASSIUM 4.2 mmol/L (3.5-5.1)
[2018-03-10] MEDS: CARVEDILOL 12.5 MG TAB PO SCH ×2 (07:50→17:27)
[2018-03-10 07:52] VITALS: BP 180/88
--- NOTE | 2018-03-10 09:51 | Progress Note ---
DATE: March 10, 2018 Ms. Ramírez is a 62-year-old female with a history of hypertension, hyperlipidemia, diabetes, chronic kidney disease, history of kidney stones came to the emergency room complaining of severe lower extremity pain and difficulty walking. Doppler of the lower extremity in the office was negative. She was found to have fever in the emergency room. She was started on IV antibiotics. Blood culture came back positive for E. coli. She was found to have a mass in the right ovary. She was also evaluated by FIELD ACCOUNT DIRECTOR. PHYSICAL EXAMINATION GENERAL: Today, she is awake and alert. She is feeling a little better. VITALS: Blood pressure is high at 180/88, temperature 97.4, pulse 88. HEART: Regular rate. LUNGS: Clear to auscultation. ABDOMEN: Distended and soft. BLOOD WORK: Potassium is 4.2, creatinine 1.67, glucose 75. White count 4.75, hemoglobin 9.1, hematocrit 27.5. On the workup, she had a lumbar spine MRI that shows severe degenerative spinal canal moderate to severe foraminal stenosis at L4-L5. She had a pelvis MRI that shows 8.1 heterogenous mass in the right anterior lower abdomen and pelvis associated with the right ovary. Could be a dermoid. She also had thoracic spine MRI done. No neoplastic process. Mild degeneration. Abdominal and pelvic CT showed bilateral nephrocalcinosis with stones in the kidney with no hydronephrosis. Right adnexal mass. ASSESSMENT AND PLAN 1. Severe low back pain and lower extremity pain that is getting better. 2. Right ovarian mass, probably dermoid. 3. Zbbip-zu-pyyazur kidney disease. 4. Anemia probably secondary to chronic kidney disease. 5. Leukocytosis. 6. Bacteremia with Escherichia coli. PLAN: At the present time, continue to follow cultures. Continue IV antibiotics. Continue to monitor kidney function. All of this was discussed with the patient. All questions were answered to satisfaction. Job#: [id number] [place]
[2018-03-10 11:47] VITALS: BP 148/71
[2018-03-10] MEDS: SODIUM FERRIC GLUCONATE COMPLX 125 MG in SODIUM CHLORIDE 0.9% 100 ML 100 ML IV SCH (13:54)
[2018-03-10 15:50] VITALS: BP 169/76
[2018-03-10 20:00] VITALS: BP 163/77
[2018-03-10] MEDS: CLONIDINE HCL 0.1 MG TAB PO PRN (22:35)
[2018-03-11] VITALS (9 sets, daily range): BP systolic 145–186; BP diastolic 67–87
[2018-03-11] MEDS: CEFAZOLIN SOD 1 GM VIAL IV SCH ×3 (06:14→23:17)
[2018-03-11 07:18] LABS: ANION GAP 12.2 mmol/L (8-16); CALCIUM 8.8 mg/dL (8.4-10.2); CREATININE, SERUM 1.73 mg/dL (0.57-1.11); MAGNESIUM 1.4 MG/DL (1.3-2.1); PHOSPHORUS 3.6 MG/DL (2.3-4.7); POTASSIUM 4.2 mmol/L (3.5-5.1)
[2018-03-11] MEDS: INSULIN REGULAR, HUMAN 100 UNIT/1 ML 3ML VIAL SQ SCH ×4 (07:30→23:18)
[2018-03-11] MEDS: CARVEDILOL 12.5 MG TAB PO SCH ×2 (08:12→16:50)
--- NOTE | 2018-03-11 10:10 | Progress Note ---
DATE: March 11, 2018 Ms. Ramírez is a 62-year-old female with a history of diabetes, hypertension, hyperlipidemia, chronic kidney disease, history of kidney stones came to the emergency room complaining of lower extremity pain and difficulty walking. She was admitted and started on IV antibiotics due to fever and elevated white count. Blood culture is showing E. coli. She is being worked up for a right ovarian mass. PHYSICAL EXAMINATION GENERAL: Today, she is awake and alert. She is feeling better. VITALS: Temperature is 97.9, blood pressure 186/87. HEART: Regular rate. LUNGS: Clear to auscultation. ABDOMEN: Distended and soft. BLOOD WORK: Potassium is 4.2, creatinine 1.73, glucose 67. White count is 4.75, hemoglobin 9.1, hematocrit 27.5. On the pelvis MRI, she had an 8.1 heterogenous mass in the right anterior lower abdomen. Thoracic spine with no neoplastic process. ASSESSMENT AND PLAN 1. Severe low back pain and lower extremity pain. 2. Right ovarian mass, probably dermoid. 3. Ncinz-bi-hsxcccv kidney disease. 4. Bacteremia with Escherichia coli. 5. Anemia secondary to chronic kidney disease. 6. Leukocytosis probably due to bacteremia. 7. Diabetes, type 2. 8. Hyperlipidemia. 9. History of kidney stones. PLAN: At the present time, is to start the patient on PT and OT. Continue IV antibiotics. Continue to monitor renal function. We are awaiting for records from [place]. Will discuss with infectious disease and oncologist any further need of workup. All of this was discussed with the patient. All questions were answered to satisfaction. Job#: [id number] [place]
[2018-03-11] MEDS: CLONIDINE HCL 0.1 MG TAB PO PRN (12:04)
[2018-03-11] MEDS: SODIUM FERRIC GLUCONATE COMPLX 125 MG in SODIUM CHLORIDE 0.9% 100 ML 100 ML IV SCH (13:52)
[2018-03-11] MEDS: HYDRALAZINE HCL 25 MG TAB PO SCH ×2 (15:00→23:18)
[2018-03-12] VITALS (7 sets, daily range): BP systolic 120–153; BP diastolic 57–69
[2018-03-12] MEDS: CEFAZOLIN SOD 1 GM VIAL IV SCH ×3 (06:10→21:36)
[2018-03-12 06:55] LABS: HEMATOCRIT 25.4 % (34.2-44.1); HEMOGLOBIN 8.5 g/dL (12.0-16.0); MEAN CORPUSCULAR HEMOGLOBIN 29.6 pg (28-32); MEAN CORPUSCULAR HGB CONC 33.5 g/dL (31-35); MEAN CORPUSCULAR VOLUME 88.5 fL (81-99); PLATELET COUNT 175 x10e3/uL (140-360); RED BLOOD COUNT 2.87 x10e6/uL (3.6-5.1); RED CELL DISTRIBUTION WIDTH 14.6 % (11.7-14.4)
[2018-03-12 07:29] LABS: ANION GAP 11.3 mmol/L (8-16); CALCIUM 8.7 mg/dL (8.4-10.2); CREATININE, SERUM 1.66 mg/dL (0.57-1.11); POTASSIUM 4.3 mmol/L (3.5-5.1)
[2018-03-12] MEDS: INSULIN REGULAR, HUMAN 100 UNIT/1 ML 3ML VIAL SQ SCH ×4 (07:30→20:48)
[2018-03-12] MEDS: CARVEDILOL 12.5 MG TAB PO SCH ×2 (09:40→17:36)
[2018-03-12] MEDS: HYDRALAZINE HCL 25 MG TAB PO SCH ×3 (09:40→21:36)
--- NOTE | 2018-03-12 09:47 | Progress Note ---
DATE: March 12, 2018 Ms. Ramírez is a 62-year-old female with a history of diabetes, hypertension, hyperlipidemia, chronic kidney disease, history of kidney stones, who came to the emergency room complaining of abdominal pain, lower extremity pain and difficulty walking. Blood culture grew E. coli. The patient has been on IV antibiotics. We are waiting for the repeat blood culture done yesterday. The patient states that her back pain and leg pain have resolved. She is doing perfect. She walks to the bathroom back and forth. PHYSICAL EXAMINATION GENERAL: Today, she is awake and alert. VITALS: Temperature is 97.9, blood pressure 153/69. HEART: Regular rate. LUNGS: Clear to auscultation. ABDOMEN: Distended and soft. BLOOD WORK: Potassium is 4.3. Creatinine is down to 1.66. Glucose is 70. White count is 4.11, hemoglobin 8.5, hematocrit 25.4. Repeated blood cultures are pending. ASSESSMENT AND PLAN 1. Severe low back pain and lower extremity pain, resolved. 2. Right ovarian mass, probably dermoid. She is going to have to follow as an outpatient. 3. Nosnj-ky-weeclvv kidney disease, improving. 4. Bacteremia with Escherichia coli on intravenous antibiotics. 5. Anemia secondary to chronic kidney disease. 6. Leukocytosis, resolved. 7. Diabetes, type 2. 8. Uncontrolled hypertension. 9. Hyperlipidemia. 10. History of kidney stones. The plan at the present time is to continue IV antibiotics. We are going to follow the blood cultures. Her blood pressure medications were changed to Coreg 12.5 twice a day and hydralazine 25 mg 3 times a day. We are going to continue to monitor her blood pressure and continue antibiotics. Will discuss with Dr. Murphy about how much longer she will need the antibiotics. The plan, if we can switch her to p.o. antibiotics, is to discharge her tomorrow. All of this was discussed with the patient. All questions were answered to satisfaction. Job#: [id number]
[2018-03-12 09:55] LABS: ANISOCYTOSIS SLIGHT; EOSINOPHILS % (MANUAL) 2 % (0-7); HYPOCHROMASIA SLIGHT; LYMPHOCYTES % (MANUAL) 16 % (19-48); MONOCYTES % (MANUAL) 10 % (3.4-9.0); NEUTROPHILS % (MANUAL) 72 % (40-74); PLATELET ESTIMATE ADEQUATE; PLATELET MORPHOLOGY COMMENT FEW LARGE
[2018-03-12 09:56] LABS: RBC MORPHOLOGY COMMENT NORMAL
[2018-03-12] MEDS: SODIUM FERRIC GLUCONATE COMPLX 125 MG in SODIUM CHLORIDE 0.9% 100 ML 100 ML IV SCH (15:46)
--- NOTE | 2018-03-12 15:48 | Consultation ---
DATE OF CONSULTATION: REQUESTING PHYSICIAN: Dr. Nyla Martel. REASON FOR CONSULTATION: Shazia Ramírez is a 62-year-old white female who has been referred to me for evaluation of right ovarian mass, history of having chills, rigor, fever, abdominal pain, subsequently admitted for further evaluation and treatment. HISTORY OF PAST ILLNESS: History of diabetes mellitus, history of hypertension, history of hyperlipidemia, history of chronic renal failure, history of kidney stones. The patient also complains that she has had difficulty walking. The patient also has had CT of the lumbar spine, which showed the patient to have spinal stenosis at L4-L5. CAT scan of the abdomen showed a pelvic mass, subsequently referred to me for further evaluation and treatment. SOCIAL HISTORY: Noncontributory. FAMILY HISTORY: Noncontributory. ALLERGIES REPORTED: None. MEDICATIONS: At this time; 1. Sodium ferric gluconate. 2. Ondansetron. 3. Sodium chloride. 4. Hydrocodone. 5. Insulin. 6. Coreg. 7. Clonidine. 8. Cefazolin. REVIEW OF SYSTEMS HEENT: Normal. CARDIAC: History of hypertension. RESPIRATORY: Normal. GI: Normal. : Chronic renal failure. MUSCULOSKELETAL: Spinal stenosis. NEUROENDOCRINE: History of diabetes mellitus, insulin-dependent. PHYSICAL EXAMINATION GENERAL: A moderately built female. NECK: No adenopathy. HEART: Within normal limits. LUNGS: Clear. ABDOMEN: Could not be examined as she questioned as to why I was consulted. RECTAL AND VAGINAL: Could not be done. CENTRAL NERVOUS SYSTEM: Could not be done again because of very incorporable patient. LABORATORY DATA: Shows hemoglobin 6.3, hematocrit 19.2, white count of 5400 dated March 08, 2018, platelets of 174,000, MCV normal at 91.4, MCHC normal at 32.8, RDW normal at 14.8. Chemistry shows sodium of 139, potassium 4.9, chloride 77, CO2 of 19, BUN 62, creatinine 2.3, glucose 92, bilirubin high at 1.4. SGOT very high at 289, SGPT high at 87, alkaline phosphatase 119. Total protein 7.4, albumin 3.5, globulins high at 3.9. The patient had imaging, which showed the lumbar spine MRI to show anterolisthesis at L4-L5, severe degenerative spinal canal and moderately severe foraminal stenosis at L4-L5, moderate degenerative foraminal stenosis on the right at L3-L4. Pelvic MRI showed an 8.1 cm heterogenous mass right anterior lower abdominal, upper pelvis reported to be perhaps associated with the right ovary, right adnexa. Pelvic ultrasound again showed cystic lesion in the right adnexum, did have septations and this was reported as 11.6 x 6.1 x 9.5 cm, cystic component measuring 7 x 5.2 x 6.6 cm. After having taken the nurse with me as I always do, after having introduced myself who I am and after giving her my card, she questioned as to why I was consulted. I had explained to her that the consultation was for possible ovarian carcinoma, at which time she was very belligerent that no one did tell her that I would be seeing her, that she has been followed up by a FIELD REVIEWER physician at [facility]. The patient claimed that this lesion has been there for the last 7 years; however, I have no records to confirm her history. I have advised the nurses to obtain a consent and to send for records for a CAT scan report. IMPRESSION 1. Anemia of chronic disease. 2. Chronic renal failure. 3. High liver function tests. 4. Hyperglobulinemia. 5. Hypomagnesemia of 0.9. 6. Cystic right adnexal mass. 7. Hypertension. 8. Diabetes mellitus, insulin-dependent. 9. Spinal stenosis. 10. Escherichia coli sepsis. PLAN, COMMENTS, AND SUGGESTIONS: Suggest FIELD REVIEWER consultation for surgery. It has to be noted that the size is large. This could be a cystadenoma, which are benign; however, this could also be cystadenocarcinoma. It is extremely hard to convince this patient. After having had explained this to her, she again questioned as to my role and I did tell her my role starts only if a malignancy is diagnosed and diagnosis of malignancy would be only after surgery. The role of CA-125 was discussed with her. I also discussed that patients with ovarian neoplasm of low malignant potential may not have a high CA-125. Suffice to say, I stepped down as in the role of medical oncologist. Recall me if the patient go through surgery and if this is diagnosed as ovarian cancer. Thank you very much for allowing me to participate in the management of this patient. I have stopped seeing her after the initial consultation as to her questioning of the validity of my consultation. Quantitation of immunoglobulins should also be done. 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 Job#: [id number] VAS cc:Dr. Nyla Lan
[2018-03-12] MEDS ORDERED: HYDROCODONE/APAP 5MG-325MG TAB PO PRN (21:15)
[2018-03-13] VITALS: BP 109/57
[2018-03-13 04:00] VITALS: BP 131/62
[2018-03-13] MEDS: CEFAZOLIN SOD 1 GM VIAL IV SCH ×2 (05:33→14:00)
[2018-03-13 06:49] LABS: BASOPHILS % 0.4 % (0.0-1.0); EOSINOPHILS # (AUTO) 0.1 (0.0-0.4); EOSINOPHILS % 2.5 % (0.0-6.0); HEMATOCRIT 26.3 % (34.2-44.1); HEMOGLOBIN 8.7 g/dL (12.0-16.0); LYMPHOCYTES # (AUTO) 1.1 (1.0-3.2); LYMPHOCYTES % 23.7 % (18.0-39.1); MEAN CORPUSCULAR HEMOGLOBIN 29.5 pg (28-32); MEAN CORPUSCULAR HGB CONC 33.1 g/dL (31-35); MEAN CORPUSCULAR VOLUME 89.2 fL (81-99); MONOCYTES # (AUTO) 0.5 (0.2-0.8); MONOCYTES % 10.5 % (4.4-11.3); NEUTROPHILS # (AUTO) 2.8 (2.1-6.9); NEUTROPHILS % 62.2 % (38.7-80.0); PLATELET COUNT 184 x10e3/uL (140-360); RED BLOOD COUNT 2.95 x10e6/uL (3.6-5.1); RED CELL DISTRIBUTION WIDTH 14.6 % (11.7-14.4)
[2018-03-13 07:08] LABS: ANION GAP 14.3 mmol/L (8-16); CALCIUM 8.5 mg/dL (8.4-10.2); CREATININE, SERUM 1.79 mg/dL (0.57-1.11); POTASSIUM 4.3 mmol/L (3.5-5.1)
[2018-03-13 07:30] VITALS: BP 156/69
[2018-03-13] MEDS: INSULIN REGULAR, HUMAN 100 UNIT/1 ML 3ML VIAL SQ SCH ×3 (07:30→16:30)
[2018-03-13 07:46] VITALS: BP 156/69
[2018-03-13] MEDS: HYDRALAZINE HCL 25 MG TAB PO SCH ×2 (09:39→15:00)
[2018-03-13] MEDS: CARVEDILOL 12.5 MG TAB PO SCH ×2 (09:40→17:00)
--- NOTE | 2018-03-13 10:20 | Discharge Summary ---
Ms. Ramírez is a 62-year-old female with a history of diabetes, hypertension, hyperlipidemia, chronic kidney disease, kidney stones came to the emergency room with back pain, difficulty walking, abdominal pain. Blood culture came back positive for E. coli. She was started on IV antibiotics. She was seen by oncologist, CORPORATE REAL ESTATE MANAGER for the ovarian mass that probably will be dermoid. She is going to follow up on that as an outpatient. Today, we are going to discuss with infectious disease to switch her to p.o. antibiotics so she can go home. PHYSICAL EXAMINATION GENERAL: She is awake and alert. VITALS: Temperature is 98.1, blood pressure 156/69. HEART: Regular rate. LUNGS: Clear to auscultation. ABDOMEN: Distended and soft. BLOOD WORK: Potassium is 4.3, creatinine 1.79, glucose 64. White count 4.48, hemoglobin 8.7, hematocrit 26.3. The repeat blood culture after 24 hours so far has been negative. ASSESSMENT AND PLAN 1. Severe low back pain and lower extremity pain, resolved. 2. Right ovarian mass, probably dermoid. She needs follow up with her CORPORATE REAL ESTATE MANAGER. 3. Pqoaf-qe-htnxwyu kidney disease. 4. Bacteremia with Escherichia coli. 5. Anemia secondary to chronic kidney disease. 6. Leukocytosis, resolved. 7. Diabetes, type 2. 8. Hyperlipidemia. 9. Uncontrolled hypertension. 10. History of kidney stones. 11. Reflux. PLAN: At the present time, is to discharge the patient home if okay with infectious disease probably on p.o. antibiotics. Repeat blood cultures have been so far negative. Her blood pressure medications were changed. She is on hydralazine, Coreg. She needs followup with me in 1 week. She is to call me or come back to the emergency room if any recurrent problem. All of this was discussed with the patient. All questions were answered to satisfaction. Please see home medication reconciliation list. MARY ANNE MARTINEZ MD Job#: [id number] [place]
[2018-03-13 11:46] VITALS: BP 121/59
[2018-03-13 16:01] VITALS: BP 132/62
[2018-03-13] MEDS ORDERED: COREG12.5 MG PO (17:34)
[2018-03-13] MEDS ORDERED: HYDRALAZINE HCL25 MG PO (17:37)
[2018-03-13] MEDS ORDERED: CIPRO500 MG PO (17:39)
== END 2018-03-13 18:00 | disposition home or self-care (01) | DRG 872 ==
LOC: ER 02:15 → MED/SURG3 08:39
PROVIDERS: ADMIT Internal Medicine; ATTEND Internal Medicine
DX: A41.9 Sepsis, unspecified organism (principal); E87.2 Acidosis; E11.21 Type 2 diabetes mellitus with diabetic nephropathy; N17.9 Acute kidney failure, unspecified; N18.4 Chronic kidney disease, stage 4 (severe); M54.9 Dorsalgia, unspecified; E83.42 Hypomagnesemia; E11.22 Type 2 diabetes mellitus with diabetic chronic kidney disease; I12.9 Hypertensive chronic kidney disease with stage 1 through stage 4 chronic kidney disease, or unspecified chronic kidney disease; Z79.4 Long term (current) use of insulin; B96.20 Unspecified Escherichia coli [E. coli] as the cause of diseases classified elsewhere; D63.1 Anemia in chronic kidney disease; N85.9 Noninflammatory disorder of uterus, unspecified; R77.1 Abnormality of globulin; E87.6 Hypokalemia; R74.8 Abnormal levels of other serum enzymes; N83.9 Noninflammatory disorder of ovary, fallopian tube and broad ligament, unspecified
CPT/HCPCS: 36415; 71045; 72146; 72148; 72195; 74176; 76770; 76856; 80048; 80053; 81001; 81015; 82270; 82378; 82550; 82553; 82570; 82728; 82948; 83540; 83605; 83735; 84100; 84155; 84156; 84165; 84300; 84466; 84484; 85007; 85014; 85018; 85025; 85027; 86301; 86304; 86336; 86850; 86900; 86920; 87040; 87071; 87086; 87186; 87205; 93005; 93976; 96360; 96365; 96367; 96372; 96374; 99284; J0690; J0696; J1956; J2185; J2405; J2916; J3370; J7030; J7050; P9016

== ENCOUNTER → 2018-04-10 | Outpatient (CLI) | payer MEDICARE, OTHER ==
[~2018-04-10] MED LIST changes: +CIPRO500 MG PO; +COREG12.5 MG PO; +HYDRALAZINE HCL25 MG PO
--- NOTE | 2018-04-10 08:50 | Diagnostic Imaging Report ---
PROCEDURE:X-RAY ABDOMEN - KUB COMPARISON:CT of the abdomen and pelvis dated 03/07/2018. INDICATIONS:RENAL STONES. DENIES COMPLAINTS FINDINGS: Faint punctate calcifications overlie both kidneys sales representative sales manager of renal lithiasis better visualized on the prior recent abdominal CT. There are no dilated loops of bowel to suggest obstruction. Abdominal pannus formation. There are no masses. There is no evidence of free air. No acute osseous abnormalities are present. Degenerative changes and scoliosis of the spine. CONCLUSION: Small bilateral renal stones. Anoop Wagoner D.O. Dictated by: Anoop Wagoner D.O. on 04/10/2018 at 8:51 Electronically approved by: Anoop Wagoner D.O. on 04/10/2018 at 8:51
== END ==
LOC: RAD 07:48
PROVIDERS: ATTEND Urology
DX: N20.0 Calculus of kidney (principal)
CPT/HCPCS: 74018

== ENCOUNTER → 2018-09-22 | Outpatient (CLI) | payer MEDICARE, OTHER ==
[~2018-09-22] MED LIST changes: +AUGMENTIN 875-1 EACH PO; +PANTOPRAZOLE SO40 MG PO; +zpack
--- NOTE | 2018-09-22 11:49 | Diagnostic Imaging Report ---
EXAM: ABDOMEN-1VIEW (KUB) DATE: 09/22/2018 10:36 AM INDICATION: Calculus of kidney COMPARISON: 03/07/2018 CT, no report available FINDINGS: Bowel Gas Pattern: Non-obstructive. Pneumoperitoneum: None Suspicious Calcifications: Several tiny calcifications overlie the kidneys, corresponding with nonobstructing calculi recent CT. Pelvic phleboliths. Other: Cholecystectomy clips. Degenerative changes spine, SI joints, and hips. IMPRESSION: Nephrolithiasis. See recent CT. Signed by: Dr. Armando Sweeney MD on 09/22/2018 11:45 AM
== END ==
LOC: RAD 10:17
PROVIDERS: ATTEND Urology
DX: N20.0 Calculus of kidney (principal)
CPT/HCPCS: 74018

== ENCOUNTER 2018-10-26 11:10 | Inpatient (IN) | payer MEDICARE, OTHER ==
[~2018-10-26] VITALS: Ht 157.5 cm; Wt 65.8 kg
[~2018-10-26 11:10] MED LIST changes: -AUGMENTIN 875-1 EACH PO; -PANTOPRAZOLE SO40 MG PO; -zpack
[2018-10-26] MEDS ORDERED: IPRATROPIUM BROMIDE 0.02% 2.5 ML NEB NEB STA (11:40)
[2018-10-26] MEDS ORDERED: SODIUM CHLORIDE 0.9% 500ML 500 ML IV STA (11:40)
[2018-10-26 12:10] LABS: BASOPHILS % 0.1 % (0.0-1.0); HEMATOCRIT 29.7 % (34.2-44.1); HEMOGLOBIN 9.6 g/dL (12.0-16.0); LYMPHOCYTES # (AUTO) 0.4 (1.0-3.2); LYMPHOCYTES % 1.8 % (18.0-39.1); MEAN CORPUSCULAR HEMOGLOBIN 28.8 pg (28-32); MEAN CORPUSCULAR HGB CONC 32.3 g/dL (31-35); MEAN CORPUSCULAR VOLUME 89.2 fL (81-99); MONOCYTES # (AUTO) 0.7 (0.2-0.8); MONOCYTES % 3.7 % (4.4-11.3); NEUTROPHILS # (AUTO) 18.5 (2.1-6.9); NEUTROPHILS % 93.2 % (38.7-80.0); PLATELET COUNT 241 x10e3/uL (140-360); RED BLOOD COUNT 3.33 x10e6/uL (3.6-5.1); RED CELL DISTRIBUTION WIDTH 14.2 % (11.7-14.4)
--- NOTE | 2018-10-26 12:12 | Diagnostic Imaging Report ---
Examination: Single AP view of the chest. COMPARISON: Single AP chest 03/07/2018 INDICATION: Shortness of breath, cough IMPRESSION: 1. Lines and Tubes: None 2. Lungs are well-inflated. Right infrahilar opacity, which may reflect atelectasis versus developing pneumonia in the right lower lobe, in the appropriate clinical setting. Left lung is clear. 3. Cardiomediastinal silhouette is normal. Pulmonary vasculature is normal. 4. No acute bony abnormalities. Rightward deviation of the thoracic spine. Signed by: Dr. Leroy Al M.D. on 10/26/2018 12:08 PM
[2018-10-26 12:24] LABS: ALBUMIN 3.2 g/dL (3.5-5.0); ALBUMIN/GLOBULIN RATIO 0.7 (0.8-2.0); CALCIUM 9.6 mg/dL (8.4-10.2); CREATININE, SERUM 3.1 mg/dL (0.57-1.11)
[2018-10-26 12:24] LABS: BILIRUBIN,URINE NEGATIVE (NEGATIVE); CLARITY,URINE CLEAR (CLEAR); COLOR,URINE YELLOW (YELLOW); KETONES,URINE TRACE (NEGATIVE); LEUKOCYTE ESTERASE ,URINE NEGATIVE (NEGATIVE); NITRITE,URINE NEGATIVE (NEGATIVE); PROTEIN,URINE DIPSTICK 3+ (NEGATIVE); URINE UROBILINOGEN 0.2 mg/dL (0.2 - 1)
[2018-10-26 12:25] LABS: BACTERIA,URINE FEW /HPF; EPITHELIAL CELLS,URINE FEW /LPF; RBC,URINE 0-5 /HPF (0-5); WBC,URINE (MAN) 0-5 /HPF (0-5)
[2018-10-26 12:27] LABS: STREPTOCOCCUS GRP A ANTIGEN POSITIVE (NEGATIVE)
[2018-10-26] MEDS ORDERED: ONDANSETRON HCL INJ 2 MG/ML VIAL IV ONE (12:30)
[2018-10-26] MEDS ORDERED: FAMOTIDINE 20 MG/2 ML VIAL IV ONE (12:30)
[2018-10-26] MEDS ORDERED: ACETAMINOPHEN 325 MG TAB PO ONE (12:30)
[2018-10-26] MEDS ORDERED: ALBUTEROL SULF 0.083% NEB SOLN 3 ML NEB NEB ONE (12:30)
[2018-10-26 12:31] LABS: CREATINE KINASE MB 3.5 ng/mL (0-5.0)
[2018-10-26 12:34] LABS: BAND NEUTROPHILS % (MANUAL) 3 %; LYMPHOCYTES % (MANUAL) 5 % (19-48); MONOCYTES % (MANUAL) 1 % (3.4-9.0); NEUTROPHILS % (MANUAL) 91 % (40-74); PLATELET ESTIMATE ADEQUATE; PLATELET MORPHOLOGY COMMENT NORMAL; RBC MORPHOLOGY COMMENT NORMAL
[2018-10-26] MEDS ORDERED: ASPIRIN 81 MG CHEW TAB ONE (13:13)
[2018-10-26] MEDS ORDERED: METOPROLOL TARTRATE INJ 1 MG/ML VIAL ONE (13:13)
[2018-10-26 13:17] LABS: INFLUENZAE A&B ANTIGEN (RAPID) NEGATIVE (NEGATIVE)
[2018-10-26] MEDS ORDERED: METOPROLOL TARTRATE INJ 1 MG/ML VIAL IV ONE (13:30)
[2018-10-26] MEDS ORDERED: LACTATED RINGER'S 1,000 ML IV SCH (13:47)
[2018-10-26] MEDS ORDERED: LACTULOSE SYRUP 20 GM/30 ML UDC PO PRN (14:00)
[2018-10-26] MEDS ORDERED: HYDRALAZINE HCL 20 MG/ML VIAL IV PRN (14:00)
[2018-10-26] MEDS ORDERED: MORPHINE SULFATE 2 MG/ML SYR IV PRN (14:00)
[2018-10-26] MEDS ORDERED: ONDANSETRON HCL INJ 2 MG/ML VIAL IV PRN (14:00)
[2018-10-26] MEDS ORDERED: ASPIRIN 81 MG CHEW TAB PO ONE (14:00)
[2018-10-26] MEDS ORDERED: DIPHENHYDRAMINE HCL INJ 50 MG/ML VIAL IV PRN (14:00)
[2018-10-26] MEDS ORDERED: ZOLPIDEM TARTRATE 5 MG TAB PO PRN (14:00)
[2018-10-26] MEDS ORDERED: FAMOTIDINE 20 MG/2 ML VIAL IV SCH (14:00)
[2018-10-26] MEDS ORDERED: ENOXAPARIN SODIUM INJ 100 MG/ML SYR SC ONE (14:30)
[2018-10-26] MEDS ORDERED: LACTATED RINGER'S 1,000 ML ONE (14:31)
[2018-10-26] MEDS: METOPROLOL TARTRATE 25 MG TAB PO SCH (14:42)
[2018-10-26] MEDS: AZITHROMYCIN 500MG/NS 250 ML 250 ML IV SCH (14:43)
[2018-10-26] MEDS: FAMOTIDINE 20 MG/2 ML VIAL IV SCH (18:13)
[2018-10-26] MEDS: ACETAMINOPHEN 325 MG TAB PO PRN (22:58)
[2018-10-27] MEDS: METOPROLOL TARTRATE 25 MG TAB PO SCH ×2 (03:33→14:26)
[2018-10-27 03:52] LABS: BASOPHILS % 0.2 % (0.0-1.0); HEMOGLOBIN 8.3 g/dL (12.0-16.0); LYMPHOCYTES # (AUTO) 0.8 (1.0-3.2); LYMPHOCYTES % 4.5 % (18.0-39.1); MEAN CORPUSCULAR HEMOGLOBIN 28.3 pg (28-32); MEAN CORPUSCULAR HGB CONC 31.9 g/dL (31-35); MEAN CORPUSCULAR VOLUME 88.7 fL (81-99); MONOCYTES # (AUTO) 1.1 (0.2-0.8); MONOCYTES % 5.8 % (4.4-11.3); NEUTROPHILS # (AUTO) 16.1 (2.1-6.9); NEUTROPHILS % 88.5 % (38.7-80.0); PLATELET COUNT 209 x10e3/uL (140-360); RED BLOOD COUNT 2.93 x10e6/uL (3.6-5.1); RED CELL DISTRIBUTION WIDTH 14.2 % (11.7-14.4)
[2018-10-27 04:00] LABS: INR 1.19; PROTHROMBIN TIME 16.1 seconds (11.9-14.5)
[2018-10-27 04:02] LABS: PARTIAL THROMBOPLASTIN TIME 69.7 seconds (23.8-35.5)
[2018-10-27 04:07] LABS: ANION GAP 17.9 mmol/L (8-16); CALCIUM 9.4 mg/dL (8.4-10.2); CHOL/HDL RATIO 4.7 (3.0-3.6); CREATININE, SERUM 2.89 mg/dL (0.57-1.11); MAGNESIUM 1.4 MG/DL (1.3-2.1); PHOSPHORUS 4.3 MG/DL (2.3-4.7); POTASSIUM 4.9 mmol/L (3.5-5.1)
[2018-10-27 04:45] LABS: CREATINE KINASE MB 3.4 ng/mL (0-5.0)
[2018-10-27] MEDS: CEFTRIAXONE SOD 1 GM VIAL IV SCH ×2 (09:30→20:55)
[2018-10-27] MEDS: FAMOTIDINE 20 MG/2 ML VIAL IV SCH ×2 (09:30→18:37)
[2018-10-27] MEDS: ASPIRIN 325 MG TAB EC PO SCH (09:30)
[2018-10-27] MEDS ORDERED: PANTOPRAZOLE SO40 MG PO (09:41)
--- NOTE | 2018-10-27 10:34 | History and Physical ---
Ms. Ramírez is a 62-year-old female with a history of diabetes with chronic kidney disease, hypertension, hyperlipidemia, history of kidney stones, came to the emergency room because she said that 2 weeks ago her father . Since then, she has not been feeling good. She has been having cough, phlegm and fever, as well as some chest pain. So, she decided to come to the emergency room. PAST MEDICAL HISTORY: She has diabetes, chronic kidney disease, hypertension, hyperlipidemia, history of kidney stones. ALLERGIES: NO KNOWN DRUG ALLERGIES. SOCIAL HISTORY: She does not smoke and she does not drink. PAST SURGICAL HISTORY: She had cholecystectomy. She had . PHYSICAL EXAMINATION GENERAL: Today, she is awake and alert. VITALS: Temperature is 98.5, blood pressure 111/52. HEART: Regular rate. LUNGS: Bilateral crackles in both lungs. ABDOMEN: Distended and soft. EXTREMITIES: No edema or erythema. BLOOD WORK: White count is 18.14, hemoglobin 8.3 and hematocrit 26. Potassium 4.9, creatinine is 2.89. Urine shows 0-5 white blood cells. Influenza test negative. Chest x-ray shows cardiomegaly and probably developing pneumonia in the right lower lobe. PLAN: At the present time, is to admit the patient to the hospital. Cardiology consult was already placed with Dr. Mcdaniel. We are going to get infectious disease, Dr. Murphy, and we are going to get Dr. Lan from renal. ASSESSMENT AND PLAN 1. Right lower lobe pneumonia. 2. Leukocytosis. 3. Hypertension. 4. Fever. 5. Diabetes with chronic kidney disease. 6. Chronic kidney disease, stage 4. 7. History of hypertension. 8. Hyperlipidemia. PLAN: Is to admit the patient to the hospital. Continue Rocephin and azithromycin. Continue home medications. The overall prognosis of the patient is guarded. Job#: [id number] RI
--- NOTE | 2018-10-27 13:08 | Consultation ---
DATE OF CONSULTATION: October 27, 2018 CARDIOLOGY CONSULTATION REASON FOR CONSULTATION: Elevated troponin. HISTORY OF PRESENT ILLNESS: Ms. Ramírez is a 62-year-old lady with history of hypertension, hypercholesterolemia, chronic kidney disease, prior history of renal stone, large right ovarian mass, anemia of chronic kidney disease on Procrit therapy, who comes in after a 2-week history of progressively worsening fevers, chills, myalgias, cough productive of clearish yellowish sputum, decreased appetite, just overall malaise and progressively worsening sepsis and poor appetite. The patient came in with essentially severe sepsis. T-max of 100.4 in the emergency room and noted to have white count elevated at 19.9. She has [id number] kidney disease currently with a creatinine of 3.1. In this setting, the troponin was checked, which showed a normal CK and MB, but troponin was noted to be mildly elevated at 0.479, down to 0.425. The patient does not endorse any chest pain symptoms outside of the chest wall pain with her forceful coughing. She denies any typical orthopnea or PND. Denies any subjective palpitations. Upon arrival in the emergency room, she was noted to be tachycardic, sinus tachycardia, but there were no ischemic EKG changes. Cardiology consultation was obtained. PAST MEDICAL HISTORY 1. Hypertension, essential. 2. Hypercholesterolemia. 3. Chronic kidney disease with baseline creatinine in the 1.8 range in recent history. 4. History of large right ovarian mass. 5. Anemia of chronic kidney disease on Procrit therapy. Sees a laundry tech. PAST SURGICAL HISTORY 1. History of cholecystectomy. 2. History of surgery in the past. 3. History of kidney stone removal. FAMILY HISTORY: Mother in her 60s of unknown cause. Father at the age of 84 and was severely sick and demented. SOCIAL HISTORY: She is a lifelong nonsmoker. Denies any alcohol or illicit drug use. ALLERGIES: NO KNOWN DRUG ALLERGIES. HOME MEDICATIONS: Include: 1. Fenofibrate 145 mg daily. 2. Protonix 40 mg daily. 3. Quinapril/hydrochlorothiazide 20 and 12.5 mg daily. REVIEW OF SYSTEMS CONSTITUTIONAL: Positive for fever, chills, rigors or malaise. Some slight weight loss in recent history. HEENT: Has occasional headache, stuffy nose, sore throat. Denies any vision changes. RESPIRATORY: Positive for chest wall pain with coughing and cough that is productive of yellow sputum and shortness of breath. CARDIOVASCULAR: As per HPI. Denies any overt chest pain, typical chest pain and angina symptoms. Denies any subjective palpitations, syncope or near syncope. GI: Positive for poor appetite and nausea. Denies any vomiting, bright red blood per rectum, melena, hematemesis or diarrhea. : Denies any dysuria. Has decreased urinary frequency. No pyuria. MUSCULOSKELETAL: Positive for aches and pains all over. Denies any leg swelling. Positive for lumbar back disease that is chronic. HEMATOLOGY: Denies any bruising or bleeding. Does have a history of anemia. ENDOCRINE: Positive for cold intolerance. NEUROLOGIC: Denies any focal weakness, numbness, tingling, seizures, headache, TIA or stroke. OTHER: The remainder of the review of systems is negative unless otherwise mentioned. PHYSICAL EXAMINATION VITALS: Height is 62 inches, weight 145 pounds. BMI is 26.5. Temperature: T-max was 100.4, currently 98.5. Pulse 84, respiratory rate 18, blood pressure 121/54. O2 sat 97% on room air. GENERAL: This is a lady who appears acutely ill with respiratory symptoms. Frequently coughing and looks overall fatigued. HEENT: Pupils are equal, round and reactive to light. The extraocular movements are intact. Oropharynx is clear. NECK: No elevation of jugular venous pulsation. No carotid bruit. CARDIOVASCULAR: Regular rate and rhythm. Normal S1 and S2. Soft, 1/6, systolic murmur at the left lower sternal border. LUNGS: Adventitial breath sounds throughout. There are some scattered crackles more so in the right lower lobe. ABDOMEN: Soft. Nontender and nondistended. Normoactive bowel sounds. No hepatosplenomegaly. BACK: No costovertebral angle tenderness. EXTREMITIES: Warm with 1 to 2+ radial pulses, 1 to 2+ femoral pulses, and markedly diminished pedal pulses. NEUROLOGIC: Cranial nerves II through XII are intact. Strength is symmetric, albeit on the weaker side. LABS: White count currently is 18.1, hemoglobin 8.3, hematocrit 26.0, platelets 209. Sodium 131, potassium 4.9, chloride 102, bicarb 16, BUN 55, creatinine 2.9, glucose 99, calcium 9.4, mag 1.4, phos 4.3. CK went from 106 to 86, and MB went from 4.0 to 3.4. Troponin went from 0.479 to 0.425. BNP is 121. Liver profile shows total cholesterol of 108, triglycerides 167, HDL 23, LDL 52. INR is 1.2. UA shows 0-5 white cells. Influenza screen is negative. Group-A strep screen is positive. Chest x-ray reveals right infrahilar opacity, looks like developing pneumonia. EKG reveals sinus tachycardia, but no ST-T-wave changes concerning for ischemia. DIAGNOSES 1. Severe sepsis with pneumonia. 2. Demand [id number] myocardial infarction I21.A1 likely from sepsis and chronic kidney disease, which is by definition a type-2 event. 3. Hypertension, essential. 4. Hyperlipidemia. 5. Chronic kidney disease with acute renal failure. 6. Anemia of chronic kidney disease. 7. Severe debility and failure to thrive. PLAN/RECOMMENDATIONS 1. From a cardiovascular standpoint, treatment will be largely towards the underlying stressors, particularly treating her underlying infectious issues. 2. Will check an echocardiogram to evaluate her LV function. 3. Will titrate antihypertensives, blood pressure permitting. Will start off with low dose beta alfonzo therapy. 4. Appreciate the primary team. She is currently on what seems to be appropriate antibiotic therapy. 5. When the patient is clinically better, we can consider ischemic risk stratification, but not at this present time. Job#: [id number]
[2018-10-27] MEDS: AZITHROMYCIN 500MG/NS 250 ML 250 ML IV SCH (14:35)
--- NOTE | 2018-10-27 16:05 | Consultation ---
DATE OF CONSULTATION: October 27, 2018 REASON FOR CONSULTATION: Fever and chills, shortness of breath. HISTORY OF PRESENT ILLNESS: This patient, who is a very pleasant 62-year-old female has a history of diabetes mellitus, chronic kidney disease, hypertension, hyperlipidemia, kidney stone, comes in the emergency room with shortness of breath and cough. The patient has been sick for 2 weeks. She did not see a doctor. She has been having shortness of breath and cough getting progressively worse with fever, chills, coughing up yellow sputum, came to the emergency room. PAST MEDICAL HISTORY: Diabetes mellitus, chronic kidney disease, kidney stone, hyperlipidemia, hypertension. PAST SURGICAL HISTORY: Denies. ALLERGIES: NKA. SOCIAL HISTORY: No smoking, drug abuse, alcohol abuse. FAMILY HISTORY: Hypertension. REVIEW OF SYSTEMS HEENT: Negative. PULMONARY: Negative. CARDIAC: Negative. : Negative. SKIN: There is no rash. Patient also has a history of right ovarian mass, chronic kidney disease, cholecystectomy, . PHYSICAL EXAMINATION GENERAL: She is currently alert, oriented, does not seem to be in any acute distress. Running fever. HEENT: She is not icteric. NECK: Supple. CHEST: Clear bilaterally. HEART: S1 and S2. No S3, S4, murmur. ABDOMEN: Soft. Bowel sounds present. No tenderness. EXTREMITIES: No edema. SKIN: No rash. Chest x-ray was done. She had right infrahilar opacity. Cultures are still pending. White count is 18.14, hemoglobin 8.3. Sodium 131, potassium 4.9, creatinine 2.89. IMPRESSIONS 1. I think the patient has community acquired pneumonia. I agree with Rocephin 1 g daily, azithromycin 500 daily. Await blood cultures, urine cultures. Recheck complete blood count. Recheck chem panel. 2. Chronic kidney disease. Will follow with you. Thank you for asking me to see this patient. Job#: [id number] ELIZABETH
[2018-10-27] MEDS ORDERED: GUAIFENESIN 600MG/DEXTROMETHORPHAN 30MG TABSR PO PRN (17:15)
[2018-10-27] MEDS ORDERED: DEXTROSE 50% SYRINGE 50 ML IV PRN (17:15)
--- NOTE | 2018-10-27 17:26 | Consultation ---
DATE OF CONSULTATION: October 27, 2018 RENAL CONSULTATION REASON FOR CONSULTATION: Acute kidney injury. HISTORY OF PRESENT ILLNESS: A 52-year-old female with a history of stage 3 chronic kidney disease, hypertension, diabetes, who presented to [facility] with 2 week history of cough, fever, chest pain and anorexia. The patient follows in our office for chronic kidney disease and has a followup appointment in December. She denies any vomiting or diarrhea. REVIEW OF SYSTEMS: As above. PAST MEDICAL HISTORY: 1. Chronic kidney disease stage 3. 2. Diabetes type 2. 3. Hypertension. 4. Dyslipidemia. 5. Nephrolithiasis. PAST SURGICAL HISTORY: 1. . 2. Cholecystectomy. SOCIAL HISTORY: No tobacco, no alcohol, no IV drugs. FAMILY HISTORY: No family history of kidney disease. ALLERGIES: NO KNOWN DRUG ALLERGIES. CURRENT MEDICATIONS: See list. PHYSICAL EXAMINATION VITAL SIGNS: Blood pressure 131/75, pulse 98, respiratory rate 20, temperature 98.4. GENERAL: In no apparent distress. HEENT: Oropharynx clear with no scleral icterus, no peripheral edema. NECK: Supple. No elevation of jugular venous pressure. No lymphadenopathy. CHEST: Decreased breath sounds at bases anteriorly and posteriorly bilaterally. CARDIOVASCULAR: Regular rate and rhythm. ABDOMEN: Soft, positive bowel sounds, no tenderness, no rebound. EXTREMITIES: No cyanosis, clubbing or edema. SKIN: Warm. IMAGING: Chest x-ray: Right infrahilar opacity, possibly developing pneumonia. LABORATORY DATA: Sodium 131, potassium 4.9, chloride 102, CO2 of 16, BUN 55, creatinine 2.89, was 3.1 on admission. White count 18, hemoglobin 8.3, hematocrit 26, platelets 209,000. ASSESSMENT AND PLAN 1. Acute kidney injury on stage 3 chronic kidney disease. The patient's baseline creatinine is approximately 1.8. Suspect acute kidney injury is due to prerenal azotemia as well as ATN from pneumonia. Continue with gentle IV fluids, IV antibiotics per infectious disease. Avoid all nephrotoxic medications. 2. Euvolemic. ____ exam, gentle IV fluids as above. 3. Pneumonia on antibiotics. 4. Hyponatremia. Continue with isotonic fluids. If worsens, will restrict her fluid intake. 5. Anemia secondary to chronic kidney disease. Will check iron stores and consider restarting Aranesp or Epogen. Job#: [id number] GH
[2018-10-27] MEDS: INSULIN REGULAR, HUMAN 100 UNIT/1 ML 3ML VIAL SQ SCH (20:54)
[2018-10-28] VITALS (7 sets, daily range): BP systolic 121–164; BP diastolic 67–85
[2018-10-28] MEDS: METOPROLOL TARTRATE 25 MG TAB PO SCH ×2 (02:26→13:37)
[2018-10-28 05:24] LABS: BASOPHILS % 0.1 % (0.0-1.0); EOSINOPHILS # (AUTO) 0.1 (0.0-0.4); EOSINOPHILS % 0.6 % (0.0-6.0); HEMATOCRIT 25.7 % (34.2-44.1); HEMOGLOBIN 8.2 g/dL (12.0-16.0); LYMPHOCYTES % 12.3 % (18.0-39.1); MEAN CORPUSCULAR HEMOGLOBIN 28.2 pg (28-32); MEAN CORPUSCULAR HGB CONC 31.9 g/dL (31-35); MEAN CORPUSCULAR VOLUME 88.3 fL (81-99); MONOCYTES # (AUTO) 0.5 (0.2-0.8); MONOCYTES % 6.2 % (4.4-11.3); NEUTROPHILS # (AUTO) 6.6 (2.1-6.9); NEUTROPHILS % 79.1 % (38.7-80.0); PLATELET COUNT 226 x10e3/uL (140-360); RED BLOOD COUNT 2.91 x10e6/uL (3.6-5.1); RED CELL DISTRIBUTION WIDTH 14.2 % (11.7-14.4)
[2018-10-28 05:36] LABS: INR 0.97; PROTHROMBIN TIME 13.8 seconds (11.9-14.5)
[2018-10-28 05:45] LABS: ALBUMIN 2.5 g/dL (3.5-5.0); ALBUMIN/GLOBULIN RATIO 0.6 (0.8-2.0); ANION GAP 16.1 mmol/L (8-16); CALCIUM 9.3 mg/dL (8.4-10.2); CREATININE, SERUM 2.88 mg/dL (0.57-1.11); POTASSIUM 4.1 mmol/L (3.5-5.1)
[2018-10-28 06:32] LABS: FERRITIN 495.34 ng/mL (4.63-204.00)
[2018-10-28 06:38] LABS: CLARITY,URINE SL CLOUDY (CLEAR); COLOR,URINE YELLOW (YELLOW); LEUKOCYTE ESTERASE ,URINE NEGATIVE (NEGATIVE); NITRITE,URINE NEGATIVE (NEGATIVE)
[2018-10-28 06:39] LABS: BILIRUBIN,URINE NEGATIVE (NEGATIVE); KETONES,URINE NEGATIVE (NEGATIVE); PROTEIN,URINE DIPSTICK 2+ (NEGATIVE); URINE UROBILINOGEN 0.2 mg/dL (0.2 - 1)
[2018-10-28 06:58] LABS: BACTERIA,URINE RARE /HPF; EPITHELIAL CELLS,URINE FEW /LPF; RBC,URINE 0-5 /HPF (0-5); RENAL EPITHELIAL CELLS,URINE RARE
[2018-10-28] MEDS: INSULIN REGULAR, HUMAN 100 UNIT/1 ML 3ML VIAL SQ SCH ×4 (07:30→21:00)
[2018-10-28 08:01] LABS: SODIUM,URINE 78 mmol/L
[2018-10-28] MEDS: FAMOTIDINE 20 MG/2 ML VIAL IV SCH ×2 (08:45→17:15)
[2018-10-28] MEDS: PANTOPRAZOLE SOD 40 MG TABEC PO SCH (08:45)
[2018-10-28] MEDS: CEFTRIAXONE SOD 1 GM VIAL IV SCH ×2 (08:45→21:40)
[2018-10-28] MEDS: ACETAMINOPHEN 325 MG TAB PO PRN (08:45)
[2018-10-28] MEDS: ASPIRIN 325 MG TAB EC PO SCH (08:45)
[2018-10-28] MEDS: FENOFIBRATE 145 MG TAB PO SCH ×2 (09:00→12:03)
--- NOTE | 2018-10-28 10:42 | Progress Note ---
DATE: October 28, 2018 Ms. Ramírez is a 62-year-old female with a history of diabetes, chronic kidney disease, hypertension, hyperlipidemia, history of kidney stones came to the emergency room with cough and phlegm. She was found to have pneumonia and admitted to the hospital, and started on IV antibiotics. PHYSICAL EXAMINATION GENERAL: Today, she is awake and alert. VITALS: Temperature is 97.9, blood pressure 163/85. HEART: Regular rate. LUNGS: She has some rales on the right base. ABDOMEN: Distended and soft. BLOOD WORK: Potassium 4.1, creatinine 2.88, glucose 90. White count 8.28, hemoglobin 8.2, hematocrit 25.7. Cultures are pending. Chest x-ray shows right lower lobe pneumonia. ASSESSMENT AND PLAN 1. Community-acquired pneumonia. 2. Leukocytosis. 3. Hypertension. 4. Diabetes with chronic kidney disease. 5. Chronic kidney disease, stage 4. 6. Hyperlipidemia. PLAN: At the present time, is to continue IV Rocephin and azithromycin. Echocardiogram is pending. Cultures are pending. Cardiology and infectious disease, as well as manager android already on the case. All of this was discussed with the patient. All questions were answered to satisfaction. Job#: [id number] CLAYTON
[2018-10-28] MEDS ORDERED: SODIUM CHLORIDE 0.9% 1000ML 1,000 ML IV SCH (20:45)
[2018-10-29] VITALS (7 sets, daily range): BP systolic 136–152; BP diastolic 71–83
[2018-10-29] MEDS: METOPROLOL TARTRATE 25 MG TAB PO SCH ×2 (02:36→16:15)
[2018-10-29 05:02] LABS: BASOPHILS % 0.7 % (0.0-1.0); EOSINOPHILS # (AUTO) 0.1 (0.0-0.4); EOSINOPHILS % 1.5 % (0.0-6.0); HEMATOCRIT 28.6 % (34.2-44.1); LYMPHOCYTES # (AUTO) 1.3 (1.0-3.2); LYMPHOCYTES % 21.7 % (18.0-39.1); MEAN CORPUSCULAR HGB CONC 31.5 g/dL (31-35); MEAN CORPUSCULAR VOLUME 89.1 fL (81-99); MONOCYTES # (AUTO) 0.7 (0.2-0.8); MONOCYTES % 10.6 % (4.4-11.3); NEUTROPHILS # (AUTO) 3.8 (2.1-6.9); NEUTROPHILS % 61.3 % (38.7-80.0); PLATELET COUNT 251 x10e3/uL (140-360); RED BLOOD COUNT 3.21 x10e6/uL (3.6-5.1); RED CELL DISTRIBUTION WIDTH 14.2 % (11.7-14.4)
[2018-10-29 05:43] LABS: ANION GAP 15.4 mmol/L (8-16); CALCIUM 9.2 mg/dL (8.4-10.2); CREATININE, SERUM 2.82 mg/dL (0.57-1.11); POTASSIUM 4.4 mmol/L (3.5-5.1)
[2018-10-29] MEDS: INSULIN REGULAR, HUMAN 100 UNIT/1 ML 3ML VIAL SQ SCH ×4 (07:30→20:24)
[2018-10-29] MEDS: ASPIRIN 325 MG TAB EC PO SCH (09:18)
[2018-10-29] MEDS: PANTOPRAZOLE SOD 40 MG TABEC PO SCH (09:18)
[2018-10-29] MEDS: FAMOTIDINE 20 MG/2 ML VIAL IV SCH ×2 (09:18→16:15)
[2018-10-29] MEDS: CEFTRIAXONE SOD 1 GM VIAL IV SCH ×2 (09:18→20:23)
--- NOTE | 2018-10-29 09:28 | Progress Note ---
DATE: October 29, 2018 SUBJECTIVE: Ms. Ramírez is a 62-year-old female with history of diabetes with chronic kidney disease, hypertension, hyperlipidemia, history of kidney stones, came to the emergency room complaining for she was not feeling good, she had cough and phlegm and fever. She was found to have pneumonia. She was started on IV antibiotics. She was seen by research quality assurance specialist that shows MV calcification versus endocarditis. Patient was suggested that she needed to have a PHILIPPE, but apparently she refused that. PHYSICAL EXAMINATION: GENERAL: Today, she is awake and alert. VITAL SIGNS: Temperature is 97.5, blood pressure 136/72. HEART: Regular rate. LUNGS: She has right lower lobe crackles. ABDOMEN: Distended and soft. BLOOD WORK: Potassium 4.4, creatinine is 2.82, glucose is 96. White cell is 6.13, hemoglobin is 9.0, hematocrit is 28.6. CULTURES: Blood culture so far not pending, the ones from yesterday are pending, the ones on admission were negative. Urine culture shows mixed valeria contamination. Strep throat culture was positive. ASSESSMENT: 1. Community-acquired pneumonia, sepsis secondary to community-acquired pneumonia. 2. Hypertension. 3. Diabetes with chronic kidney disease. 4. Chronic kidney disease, stage 4. 5. Hyperlipidemia. 6. Mitral valve calcification versus endocarditis. PLAN: At present time is to continue IV antibiotics, continue to follow up blood culture results. Transcribing Machine Mechanic suggested that patient had a PHILIPPE, but apparently she is refusing that. Continue present treatment. Continue ADA diet and sliding scale with insulin. Job#: [id number]
[2018-10-30] VITALS: BP 139/76
[2018-10-30] MEDS: METOPROLOL TARTRATE 25 MG TAB PO SCH (02:37)
[2018-10-30 04:00] VITALS: BP 129/64
[2018-10-30 07:23] VITALS: BP 156/76
[2018-10-30] MEDS: INSULIN REGULAR, HUMAN 100 UNIT/1 ML 3ML VIAL SQ SCH (07:30)
[2018-10-30 07:55] VITALS: BP 156/76
[2018-10-30] MEDS: FENOFIBRATE 145 MG TAB PO SCH (08:22)
[2018-10-30] MEDS: FAMOTIDINE 20 MG/2 ML VIAL IV SCH (08:22)
[2018-10-30] MEDS: ASPIRIN 325 MG TAB EC PO SCH (08:22)
[2018-10-30] MEDS: PANTOPRAZOLE SOD 40 MG TABEC PO SCH (08:22)
[2018-10-30] MEDS: CEFTRIAXONE SOD 1 GM VIAL IV SCH (08:22)
[2018-10-30] MEDS ORDERED: zpack (09:26)
[2018-10-30] MEDS ORDERED: AUGMENTIN 875-1 EACH PO (09:27)
--- NOTE | 2018-10-30 18:58 | Discharge Summary ---
HOSPITAL COURSE: Ms. Ramírez is a 62-year-old female with history of diabetes, chronic kidney disease, hypertension, hyperlipidemia, kidney stone. Came to the emergency room with cough and fever. She was found to have pneumonia. She was started on IV antibiotics. She was seen by a ordnance corps officer. That showed some MV calcification versus endocarditis, but the patient keeps refusing a PHILIPPE. PHYSICAL EXAM: GENERAL: She is doing better. She is awake and alert. VITAL SIGNS: Temperature is 97.6. Blood pressure is 156/76. HEART: Regular rate. LUNGS: Clear to auscultation. BLOOD WORK: White count is 6.13, hemoglobin is 9, hematocrit is 28.6. Glucose 84 today. Blood cultures x4 negative. Urine negative. ASSESSMENT AND PLAN: 1. Community-acquired pneumonia with sepsis. 1. Hypertension. 2. Diabetes with chronic kidney disease. 3. Chronic kidney disease stage 3. 4. Hyperlipidemia. 5. Mitral valve calcifications with negative blood cultures. Patient refused transesophageal echocardiogram. PLAN AT THE PRESENT TIME: Is to discharge the patient home to continue all her home medications. She is also going to be on Z-Sergio and Augmentin 875 p.o. daily for 7 more days. She needs followup with me in 1 week and followup with consultants as directed by them. Please see home medication reconciliation list. All this was discussed with patient. All questions were answered to satisfaction. Job#: [id number] DEBRA
== END 2018-10-30 10:22 | disposition home or self-care (01) | DRG 871 ==
LOC: ER 11:10 → ERHOLD 13:47 → MED/SURG2 10-28 18:09
PROVIDERS: ADMIT Internal Medicine; ATTEND Internal Medicine
DX: A41.9 Sepsis, unspecified organism (principal); J18.9 Pneumonia, unspecified organism; N17.0 Acute kidney failure with tubular necrosis; I21.A1 Myocardial infarction type 2; E87.1 Hypo-osmolality and hyponatremia; E11.22 Type 2 diabetes mellitus with diabetic chronic kidney disease; N18.3 Chronic kidney disease, stage 3 (moderate); I12.9 Hypertensive chronic kidney disease with stage 1 through stage 4 chronic kidney disease, or unspecified chronic kidney disease; E78.5 Hyperlipidemia, unspecified; I05.8 Other rheumatic mitral valve diseases; D63.1 Anemia in chronic kidney disease; R65.20 Severe sepsis without septic shock; R62.7 Adult failure to thrive; M51.36 Other intervertebral disc degeneration, lumbar region; Z53.29 Procedure and treatment not carried out because of patient's decision for other reasons; Z68.26 Body mass index [BMI] 26.0-26.9, adult; Z79.4 Long term (current) use of insulin
CPT/HCPCS: 36415; 71045; 80048; 80053; 80061; 81001; 82550; 82553; 82728; 82948; 83518; 83540; 83735; 83880; 84100; 84300; 84466; 84484; 85025; 85610; 85730; 87040; 87086; 87400; 93005; 93306; 94640; 99285; J0456; J0696; J1650; J2405; J7030; J7040; J7120

== ENCOUNTER → 2019-06-30 | Outpatient (CLI) | payer OTHER, MEDICARE ==
[~2019-06-30] MED LIST changes: +AUGMENTIN 875-1 EACH PO; +PANTOPRAZOLE SO40 MG PO; +zpack
--- NOTE | 2019-06-30 15:26 | Diagnostic Imaging Report ---
EXAMINATION: CHEST 2 VIEWS INDICATION: KV screening COMPARISON: Chest radiograph of 10/26/2018 FINDINGS: LINES/TUBES:None LUNGS:The lungs are well-inflated. No focal consolidation or pulmonary edema. PLEURA:No pleural effusion or pneumothorax. MEDIASTINUM:The cardiomediastinal silhouette appears unchanged in size and shape. BONES/SOFT TISSUES:No acute osseous injury. ABDOMEN:No free air under the diaphragm. IMPRESSION: No focal pneumonia or pulmonary edema. Signed by: Caroline Rivas MD on 06/30/2019 3:22 PM
== END ==
LOC: RAD 14:03
PROVIDERS: ATTEND Internal Medicine Nephrology
DX: Z11.1 Encounter for screening for respiratory tuberculosis (principal)
CPT/HCPCS: 71046

== ENCOUNTER 2020-12-22 18:35 | Emergency (ER) | payer MEDICARE, OTHER ==
[~2020-12-22] VITALS: Ht 157.5 cm; Wt 65.8 kg
[2020-12-22 19:34] LABS: BASOPHILS % 0.2 % (0.0-1.0); EOSINOPHILS % 0.4 % (0.0-6.0); HEMATOCRIT 32.5 % (34.2-44.1); LYMPHOCYTES # (AUTO) 0.8 (1.0-3.2); LYMPHOCYTES % 15.5 % (18.0-39.1); MEAN CORPUSCULAR HEMOGLOBIN 30.5 pg (28-32); MEAN CORPUSCULAR HGB CONC 33.8 g/dL (31-35); MONOCYTES # (AUTO) 0.4 (0.2-0.8); NEUTROPHILS # (AUTO) 3.9 (2.1-6.9); NEUTROPHILS % 75.1 % (38.7-80.0); PLATELET COUNT 109 x10e3/uL (140-360); RED BLOOD COUNT 3.61 x10e6/uL (3.6-5.1); RED CELL DISTRIBUTION WIDTH 14.7 % (11.7-14.4)
[2020-12-22 19:46] LABS: CLARITY,URINE SL CLOUDY (CLEAR); COLOR,URINE YELLOW (YELLOW); KETONES,URINE NEGATIVE (NEGATIVE); LEUKOCYTE ESTERASE ,URINE NEGATIVE (NEGATIVE); NITRITE,URINE NEGATIVE (NEGATIVE); PROTEIN,URINE DIPSTICK >=300 (NEGATIVE); URINE UROBILINOGEN 0.2 mg/dL (0.2 - 1)
[2020-12-22 19:50] LABS: ALBUMIN 3.6 g/dL (3.5-5.0); ALBUMIN/GLOBULIN RATIO 0.9 (0.8-2.0); ANION GAP 19.9 mmol/L (8-16); CALCIUM 8.8 mg/dL (8.4-10.2); CREATININE, SERUM 5.38 mg/dL (0.57-1.11); POTASSIUM 3.9 mmol/L (3.5-5.1)
[2020-12-22 20:00] LABS: BACTERIA,URINE MODERATE /HPF; EPITHELIAL CELLS,URINE MANY /LPF; RBC,URINE 0-5 /HPF (0-5)
== END 2020-12-22 22:12 | disposition home or self-care (01) ==
LOC: ER 19:01
DX: R11.0 Nausea (principal); I12.9 Hypertensive chronic kidney disease with stage 1 through stage 4 chronic kidney disease, or unspecified chronic kidney disease; E11.22 Type 2 diabetes mellitus with diabetic chronic kidney disease; N18.9 Chronic kidney disease, unspecified; Z99.2 Dependence on renal dialysis; D64.9 Anemia, unspecified; Z87.442 Personal history of urinary calculi
CPT/HCPCS: 36415; 71045; 80053; 81001; 85025; 99284

== ENCOUNTER 2021-05-11 12:18 | Emergency (ER) | payer MEDICARE, OTHER ==
[~2021-05-11] VITALS: Ht 157.5 cm; Wt 65.8 kg
[2021-05-11] MEDS ORDERED: NEURONTIN100 MG PO (12:39)
== END 2021-05-11 12:45 | disposition home or self-care (01) ==
LOC: ER 12:30
DX: M54.5 Low back pain (principal); M53.3 Sacrococcygeal disorders, not elsewhere classified; I12.0 Hypertensive chronic kidney disease with stage 5 chronic kidney disease or end stage renal disease; E11.22 Type 2 diabetes mellitus with diabetic chronic kidney disease; N18.6 End stage renal disease; Z99.2 Dependence on renal dialysis; D64.9 Anemia, unspecified
CPT/HCPCS: 99282

== ENCOUNTER 2021-12-02 08:59 | Emergency (ER) | payer MEDICARE, OTHER ==
[~2021-12-02] VITALS: Ht 157.5 cm; Wt 65.8 kg
[~2021-12-02 08:59] MED LIST changes: +NEURONTIN100 MG PO
[2021-12-02] MEDS ORDERED: ONDANSETRON HCL INJ 2MG/ML 2ML 2 MG/ML VIAL IV PRN (09:30)
[2021-12-02 09:31] LABS: BASOPHILS % 0.3 % (0.0-1.0); EOSINOPHILS % 0.3 % (0.0-6.0); HEMATOCRIT 34.3 % (34.2-44.1); HEMOGLOBIN 11.5 g/dL (12.0-16.0); LYMPHOCYTES # (AUTO) 0.5 (1.0-3.2); LYMPHOCYTES % 6.4 % (18.0-39.1); MEAN CORPUSCULAR HEMOGLOBIN 31.3 pg (28-32); MEAN CORPUSCULAR HGB CONC 33.5 g/dL (31-35); MEAN CORPUSCULAR VOLUME 93.2 fL (81-99); MONOCYTES # (AUTO) 0.7 (0.2-0.8); MONOCYTES % 9.5 % (4.4-11.3); NEUTROPHILS # (AUTO) 6.4 (2.1-6.9); PLATELET COUNT 140 x10e3/uL (140-360); RED BLOOD COUNT 3.68 x10e6/uL (3.6-5.1); RED CELL DISTRIBUTION WIDTH 14.8 % (11.7-14.4)
[2021-12-02] MEDS ORDERED: HYDRALAZINE HCL 20 MG/ML VIAL IV STA (09:37)
[2021-12-02 09:48] LABS: ALBUMIN 3.9 g/dL (3.5-5.0); ALBUMIN/GLOBULIN RATIO 1.1 (0.8-2.0); ANION GAP 24.3 mmol/L (8-16); CALCIUM 7.9 mg/dL (8.4-10.2); CREATININE, SERUM 8.77 mg/dL (0.57-1.11); POTASSIUM 4.3 mmol/L (3.5-5.1)
[2021-12-02 09:53] LABS: INR 0.97; PROTHROMBIN TIME 13.7 seconds (11.9-14.5)
[2021-12-02 09:54] LABS: PARTIAL THROMBOPLASTIN TIME 36.6 seconds (23.8-35.5)
[2021-12-02 10:35] LABS: CLARITY,URINE CLOUDY (CLEAR); COLOR,URINE YELLOW (YELLOW); KETONES,URINE TRACE (NEGATIVE); LEUKOCYTE ESTERASE ,URINE NEGATIVE (NEGATIVE); NITRITE,URINE NEGATIVE (NEGATIVE); PROTEIN,URINE DIPSTICK >=300 (NEGATIVE); URINE UROBILINOGEN 0.2 mg/dL (0.2 - 1)
[2021-12-02 10:41] LABS: BACTERIA,URINE MANY /HPF; EPITHELIAL CELLS,URINE MANY /LPF
[2021-12-02 11:00] VITALS: BP 145/85
== END 2021-12-02 12:29 | disposition home or self-care (01) ==
LOC: ER 09:05
DX: R51.9 Headache, unspecified (principal); J06.9 Acute upper respiratory infection, unspecified; I25.10 Atherosclerotic heart disease of native coronary artery without angina pectoris; E11.22 Type 2 diabetes mellitus with diabetic chronic kidney disease; I12.0 Hypertensive chronic kidney disease with stage 5 chronic kidney disease or end stage renal disease; N18.6 End stage renal disease; Z99.2 Dependence on renal dialysis
CPT/HCPCS: 36415; 70450; 71045; 80053; 81001; 83735; 83880; 84484; 85025; 85610; 85730; 93005; 99284; J0360; J2405

== ENCOUNTER 2021-12-04 01:13 | Emergency (ER) | payer MEDICARE, OTHER ==
[~2021-12-04] VITALS: Ht 157.5 cm; Wt 65.8 kg
[2021-12-04] MEDS ORDERED: SODIUM CHLORIDE 0.9% 1000ML 1,000 ML IV STA (01:18)
[2021-12-04] MEDS ORDERED: ACETAMINOPHEN 325 MG TAB PO STA (01:48)
[2021-12-04 02:25] LABS: BASOPHILS % 0.3 % (0.0-1.0); EOSINOPHILS % 0.4 % (0.0-6.0); HEMATOCRIT 32.6 % (34.2-44.1); HEMOGLOBIN 10.8 g/dL (12.0-16.0); LYMPHOCYTES # (AUTO) 0.7 (1.0-3.2); LYMPHOCYTES % 6.5 % (18.0-39.1); MEAN CORPUSCULAR HEMOGLOBIN 30.9 pg (28-32); MEAN CORPUSCULAR HGB CONC 33.1 g/dL (31-35); MEAN CORPUSCULAR VOLUME 93.4 fL (81-99); MONOCYTES % 9.3 % (4.4-11.3); NEUTROPHILS % 81.7 % (38.7-80.0); PLATELET COUNT 161 x10e3/uL (140-360); RED BLOOD COUNT 3.49 x10e6/uL (3.6-5.1); RED CELL DISTRIBUTION WIDTH 14.6 % (11.7-14.4)
[2021-12-04 02:39] LABS: ALBUMIN 3.5 g/dL (3.5-5.0); ALBUMIN/GLOBULIN RATIO 1.1 (0.8-2.0); ANION GAP 27.2 mmol/L (8-16); CALCIUM 7.5 mg/dL (8.4-10.2); CREATININE, SERUM 10.94 mg/dL (0.57-1.11); POTASSIUM 4.2 mmol/L (3.5-5.1)
[2021-12-04 03:03] LABS: CREATINE KINASE MB 4.5 ng/mL (0-5.0)
[2021-12-04] MEDS ORDERED: LORAZEPAM INJ 2 MG/ML VIAL IV STA (04:05)
[2021-12-04] MEDS ORDERED: ATIVAN0.5 MG PO (04:08)
== END 2021-12-04 05:30 | disposition home or self-care (01) ==
LOC: ER 01:30
DX: G25.81 Restless legs syndrome (principal); I12.0 Hypertensive chronic kidney disease with stage 5 chronic kidney disease or end stage renal disease; E11.22 Type 2 diabetes mellitus with diabetic chronic kidney disease; N18.6 End stage renal disease; Z99.2 Dependence on renal dialysis; I25.10 Atherosclerotic heart disease of native coronary artery without angina pectoris; D64.9 Anemia, unspecified; E78.00 Pure hypercholesterolemia, unspecified; Z95.5 Presence of coronary angioplasty implant and graft
CPT/HCPCS: 36415; 70450; 71045; 80053; 80320; 82550; 82553; 83880; 84484; 85025; 93005; 99284; J2060

== ENCOUNTER 2021-12-15 19:49 | Emergency (ER) | payer MEDICARE, OTHER ==
[~2021-12-15] VITALS: Ht 157.5 cm; Wt 65.8 kg
[~2021-12-15 19:49] MED LIST changes: +ATIVAN0.5 MG PO
== END 2021-12-15 22:41 | disposition home or self-care (01) ==
LOC: ER 20:52
DX: M25.561 Pain in right knee (principal); S09.90XA Unspecified injury of head, initial encounter; M25.551 Pain in right hip; W18.39XA Other fall on same level, initial encounter; Y93.01 Activity, walking, marching and hiking; I12.0 Hypertensive chronic kidney disease with stage 5 chronic kidney disease or end stage renal disease; E11.22 Type 2 diabetes mellitus with diabetic chronic kidney disease; N18.6 End stage renal disease; Z99.2 Dependence on renal dialysis; E78.5 Hyperlipidemia, unspecified; D64.9 Anemia, unspecified; Z95.5 Presence of coronary angioplasty implant and graft
CPT/HCPCS: 70450; 99284

== ENCOUNTER 2021-12-24 22:58 | Inpatient (IN) | payer MEDICARE, OTHER ==
[~2021-12-24] VITALS: Ht 157.5 cm; Wt 72.1 kg
[2021-12-24] MEDS ORDERED: CEFTRIAXONE 1 GM in SODIUM CHLORIDE 0.9% 50ML 50 ML IV STA (23:07)
[2021-12-24] MEDS ORDERED: HYDRALAZINE HCL 20 MG/ML VIAL IV STA (23:11)
[2021-12-24] MEDS ORDERED: DEXAMETHASONE SOD PHOS 10 MG/1 ML VIAL IV ONE (23:15)
[2021-12-24 23:29] LABS: BASOPHILS % 0.3 % (0.0-1.0); EOSINOPHILS # (AUTO) 0.3 (0.0-0.4); EOSINOPHILS % 2.6 % (0.0-6.0); HEMATOCRIT 34.6 % (34.2-44.1); HEMOGLOBIN 10.5 g/dL (12.0-16.0); LYMPHOCYTES # (AUTO) 1.2 (1.0-3.2); LYMPHOCYTES % 9.7 % (18.0-39.1); MEAN CORPUSCULAR HEMOGLOBIN 30.1 pg (28-32); MEAN CORPUSCULAR HGB CONC 30.3 g/dL (31-35); MEAN CORPUSCULAR VOLUME 99.1 fL (81-99); MONOCYTES # (AUTO) 0.6 (0.2-0.8); MONOCYTES % 4.9 % (4.4-11.3); NEUTROPHILS # (AUTO) 10.4 (2.1-6.9); NEUTROPHILS % 82.1 % (38.7-80.0); PLATELET COUNT 208 x10e3/uL (140-360); RED BLOOD COUNT 3.49 x10e6/uL (3.6-5.1); RED CELL DISTRIBUTION WIDTH 15.5 % (11.7-14.4)
[2021-12-24 23:45] LABS: ALBUMIN 3.7 g/dL (3.5-5.0); ANION GAP 22.8 mmol/L (8-16); CREATININE, SERUM 8.72 mg/dL (0.57-1.11); POTASSIUM 4.8 mmol/L (3.5-5.1)
[2021-12-24] MEDS ORDERED: LABETALOL HCL 5 MG/ML 20ML VIAL IV STA (23:46)
[2021-12-24 23:49] LABS: CALCIUM 9.6 mg/dL (8.4-10.2)
[2021-12-25] VITALS (9 sets, daily range): BP systolic 162–186; BP diastolic 89–99
[2021-12-25 00:08] LABS: B-TYPE NATRIURETIC PEPTIDE2 740.3 pg/mL (0-100)
[2021-12-25] MEDS ORDERED: ACETAMINOPHEN 325 MG TAB PO ONE (01:00)
[2021-12-25] MEDS ORDERED: FUROSEMIDE INJ 10 MG/ML 4 ML VIAL IV ONE (01:00)
[2021-12-25] MEDS ORDERED: SODIUM CHLORIDE 0.9% 1000ML 1,000 ML IV SCH (01:00)
[2021-12-25] MEDS ORDERED: LABETALOL HCL 20 MG/4 ML SYRINGE IV PRN (01:00)
[2021-12-25 02:46] LABS: PROTHROMBIN TIME 10.1 seconds (11.9-14.5)
[2021-12-25 02:47] LABS: INR 0.9
[2021-12-25 02:56] LABS: PARTIAL THROMBOPLASTIN TIME 24.8 seconds (23.8-35.5)
[2021-12-25] MEDS ORDERED: PLAVIX75 MG PO (07:59)
[2021-12-25] MEDS ORDERED: GLIPIZIDE5 MG PO (07:59)
[2021-12-25] MEDS ORDERED: ATORVASTATIN CA20 MG PO (07:59)
[2021-12-25] MEDS ORDERED: METOPROLOL TART25 MG PO (07:59)
[2021-12-25] MEDS ORDERED: PROTONIX20 MG PO (07:59)
[2021-12-25] MEDS ORDERED: CALCIUM ACETAT667 M1 PO (07:59)
[2021-12-25] MEDS ORDERED: DEXTROSE 50% SYRINGE 50 ML IV PRN (09:15)
[2021-12-25] MEDS ORDERED: ACETAMINOPHEN 325 MG TAB PO PRN (09:15)
[2021-12-25] MEDS: METOPROLOL TARTRATE 25 MG TAB PO SCH ×2 (11:24→17:18)
[2021-12-25] MEDS: CALCIUM ACETATE 667 MG GELCAP PO SCH ×2 (11:54→17:18)
[2021-12-25] MEDS: INSULIN LISPRO 100 UNIT/1 ML 3ML VIAL SQ SCH ×3 (11:54→20:29)
[2021-12-25] MEDS ORDERED: SODIUM CHLORIDE 0.9% 1000ML 1,000 ML ONE (13:18)
[2021-12-25] MEDS ORDERED: REMDESIVIR 100MG 200 MG in SODIUM CHLORIDE 0.9% 100 ML IV ONE (17:00)
[2021-12-25] MEDS: DEXAMETHASONE SOD PHOS 10 MG/1 ML VIAL IV SCH (17:16)
[2021-12-25] MEDS ORDERED: METOPROLOL TARTRATE 25 MG TAB PO ONE (18:30)
[2021-12-25] MEDS: ATORVASTATIN 40 MG TAB PO SCH (20:28)
[2021-12-25] MEDS: PANTOPRAZOLE SOD 40 MG TABEC PO SCH (20:28)
[2021-12-25] MEDS: LABETALOL HCL 5 MG/ML 20ML VIAL IV PRN (20:58)
[2021-12-26] VITALS (9 sets, daily range): BP systolic 111–214; BP diastolic 67–113
[2021-12-26 05:03] LABS: BASOPHILS % 0.1 % (0.0-1.0); HEMATOCRIT 28.3 % (34.2-44.1); HEMOGLOBIN 8.9 g/dL (12.0-16.0); LYMPHOCYTES # (AUTO) 0.6 (1.0-3.2); LYMPHOCYTES % 7.7 % (18.0-39.1); MEAN CORPUSCULAR HEMOGLOBIN 30.3 pg (28-32); MEAN CORPUSCULAR HGB CONC 31.4 g/dL (31-35); MEAN CORPUSCULAR VOLUME 96.3 fL (81-99); MONOCYTES # (AUTO) 0.3 (0.2-0.8); MONOCYTES % 4.2 % (4.4-11.3); NEUTROPHILS # (AUTO) 6.3 (2.1-6.9); NEUTROPHILS % 87.6 % (38.7-80.0); PLATELET COUNT 159 x10e3/uL (140-360); RED BLOOD COUNT 2.94 x10e6/uL (3.6-5.1); RED CELL DISTRIBUTION WIDTH 15.4 % (11.7-14.4)
[2021-12-26 05:26] LABS: ANION GAP 17.6 mmol/L (8-16); CALCIUM 9.6 mg/dL (8.4-10.2); CREATININE, SERUM 5.56 mg/dL (0.57-1.11); POTASSIUM 4.6 mmol/L (3.5-5.1)
[2021-12-26] MEDS: INSULIN LISPRO 100 UNIT/1 ML 3ML VIAL SQ SCH ×4 (07:30→21:00)
[2021-12-26] MEDS: GLIPIZIDE 5 MG TAB PO SCH (09:11)
[2021-12-26] MEDS: CLOPIDOGREL BISULFATE 75 MG TAB PO SCH (09:12)
[2021-12-26] MEDS: METOPROLOL TARTRATE 50 MG TAB PO SCH ×2 (09:12→18:04)
[2021-12-26] MEDS: CALCIUM ACETATE 667 MG GELCAP PO SCH ×3 (09:12→18:04)
[2021-12-26] MEDS: ONDANSETRON HCL INJ 2MG/ML 2ML 2 MG/ML VIAL IV PRN (13:12)
[2021-12-26] MEDS: LABETALOL HCL 5 MG/ML 20ML VIAL IV PRN (13:13)
[2021-12-26] MEDS ORDERED: LORAZEPAM 1 MG TAB PO STA (14:11)
[2021-12-26] MEDS ORDERED: HEPARIN 25,000 UNIT 1,100 UNIT in DEXTROSE 5% 250ML 250 ML IV SCH ×2 (15:15→15:30)
[2021-12-26] MEDS: Morphine 2mg Syringe 2 MG/ML SYR IV PRN ×2 (15:37→16:25)
[2021-12-26 15:43] LABS: ABG HCO3 31 mmol/L (22-26); ABG PCO2 54 mmHg (35-45); ABG PH 7.37 (7.35-7.45); ABG PO2 53 mmHg (80-105); ABG TCO2 33
[2021-12-26] MEDS ORDERED: NICARDIPINE 20MG/200ML PREMIX 200 ML IV SCH (16:15)
[2021-12-26] MEDS: DEXAMETHASONE SOD PHOS 10 MG/1 ML VIAL IV SCH (18:04)
[2021-12-26] MEDS: REMDESIVIR 100MG 100 MG in SODIUM CHLORIDE 0.9% 100 ML IV SCH (18:04)
[2021-12-26] MEDS ORDERED: SODIUM CHLORIDE 0.9% 1000ML 1,000 ML ONE (20:03)
[2021-12-26] MEDS ORDERED: SODIUM CHLORIDE 0.9% 50ML 50 ML ONE (20:11)
[2021-12-26] MEDS ORDERED: IOPAMIDOL 370 MG/ML 200 ML INFUS..BTL INJ ONE (20:11)
[2021-12-26] MEDS ORDERED: ASPIRIN 81 MG CHEW TAB PO ONE (21:00)
[2021-12-26] MEDS ORDERED: CEFTRIAXONE 1 GM in SODIUM CHLORIDE 0.9% 50ML 50 ML IV SCH (21:00)
[2021-12-26] MEDS ORDERED: HEPARIN SOD (PORCINE) 5,000 UNIT/ML VIAL SC SCH (21:00)
[2021-12-26] MEDS: PANTOPRAZOLE SOD 40 MG TABEC PO SCH (21:13)
[2021-12-26] MEDS: ATORVASTATIN 40 MG TAB PO SCH (21:13)
[2021-12-26 22:41] LABS: CREATINE KINASE MB 2.2 ng/mL (0-5.0)
[2021-12-27] VITALS (8 sets, daily range): BP systolic 114–169; BP diastolic 57–84
[2021-12-27] MEDS: Morphine 2mg Syringe 2 MG/ML SYR IV PRN (04:30)
[2021-12-27] MEDS: ONDANSETRON HCL INJ 2MG/ML 2ML 2 MG/ML VIAL IV PRN (04:30)
[2021-12-27 05:12] LABS: HEMOGLOBIN 10.1 g/dL (12.0-16.0); MEAN CORPUSCULAR HEMOGLOBIN 29.4 pg (28-32); MEAN CORPUSCULAR HGB CONC 29.7 g/dL (31-35); MEAN CORPUSCULAR VOLUME 98.8 fL (81-99); PLATELET COUNT 171 x10e3/uL (140-360); RED BLOOD COUNT 3.44 x10e6/uL (3.6-5.1); RED CELL DISTRIBUTION WIDTH 15.4 % (11.7-14.4)
[2021-12-27 05:37] LABS: ANION GAP 23.5 mmol/L (8-16); CALCIUM 9.6 mg/dL (8.4-10.2); CREATININE, SERUM 7.03 mg/dL (0.57-1.11); POTASSIUM 5.5 mmol/L (3.5-5.1)
[2021-12-27] MEDS: INSULIN LISPRO 100 UNIT/1 ML 3ML VIAL SQ SCH ×4 (07:30→21:12)
[2021-12-27 07:37] LABS: LYMPHOCYTES % (MANUAL) 2 % (19-48); MONOCYTES % (MANUAL) 1 % (3.4-9.0); NEUTROPHILS % (MANUAL) 96 % (40-74)
[2021-12-27 07:38] LABS: PLATELET ESTIMATE ADEQUATE; PLATELET MORPHOLOGY COMMENT NORMAL; RBC MORPHOLOGY COMMENT NORMAL
[2021-12-27] MEDS: CLOPIDOGREL BISULFATE 75 MG TAB PO SCH (08:05)
[2021-12-27] MEDS: GLIPIZIDE 5 MG TAB PO SCH (08:05)
[2021-12-27] MEDS: CALCIUM ACETATE 667 MG GELCAP PO SCH ×3 (08:05→17:49)
[2021-12-27] MEDS: METOPROLOL TARTRATE 50 MG TAB PO SCH ×2 (08:08→17:50)
[2021-12-27] MEDS: PIPERACILLIN/TAZOBACTAM 2.25 GM in SODIUM CHLORIDE 0.9% 50ML 50 ML IV SCH ×2 (13:00→21:12)
[2021-12-27] MEDS ORDERED: ENOXAPARIN SOD INJ 40 MG/0.4 ML SYR SC SCH (17:00)
[2021-12-27] MEDS: DEXAMETHASONE SOD PHOS 10 MG/1 ML VIAL IV SCH (17:49)
[2021-12-27] MEDS: REMDESIVIR 100MG 100 MG in SODIUM CHLORIDE 0.9% 100 ML IV SCH (17:49)
[2021-12-27] MEDS: ENOXAPARIN 30 MG/0.3 ML SYR SC SCH (17:50)
[2021-12-27] MEDS: PANTOPRAZOLE SOD 40 MG TABEC PO SCH (21:12)
[2021-12-27] MEDS: ATORVASTATIN 40 MG TAB PO SCH (21:12)
[2021-12-28] VITALS (7 sets, daily range): BP systolic 120–158; BP diastolic 63–82
[2021-12-28] MEDS: PIPERACILLIN/TAZOBACTAM 2.25 GM in SODIUM CHLORIDE 0.9% 50ML 50 ML IV SCH ×3 (05:50→21:40)
[2021-12-28 05:58] LABS: BASOPHILS % 0.2 % (0.0-1.0); HEMATOCRIT 32.4 % (34.2-44.1); HEMOGLOBIN 9.9 g/dL (12.0-16.0); LYMPHOCYTES # (AUTO) 0.5 (1.0-3.2); LYMPHOCYTES % 8.2 % (18.0-39.1); MEAN CORPUSCULAR HEMOGLOBIN 29.9 pg (28-32); MEAN CORPUSCULAR HGB CONC 30.6 g/dL (31-35); MEAN CORPUSCULAR VOLUME 97.9 fL (81-99); MONOCYTES # (AUTO) 0.4 (0.2-0.8); MONOCYTES % 5.6 % (4.4-11.3); NEUTROPHILS # (AUTO) 5.5 (2.1-6.9); NEUTROPHILS % 85.5 % (38.7-80.0); PLATELET COUNT 163 x10e3/uL (140-360); RED BLOOD COUNT 3.31 x10e6/uL (3.6-5.1)
[2021-12-28 06:22] LABS: ALBUMIN 3.3 g/dL (3.5-5.0); ALBUMIN/GLOBULIN RATIO 1.1 (0.8-2.0); ANION GAP 16.5 mmol/L (8-16); CALCIUM 9.3 mg/dL (8.4-10.2); CREATININE, SERUM 5.71 mg/dL (0.57-1.11); POTASSIUM 5.5 mmol/L (3.5-5.1)
[2021-12-28] MEDS: METOPROLOL TARTRATE 50 MG TAB PO SCH ×2 (08:06→16:51)
[2021-12-28] MEDS: CLOPIDOGREL BISULFATE 75 MG TAB PO SCH (08:06)
[2021-12-28] MEDS: CALCIUM ACETATE 667 MG GELCAP PO SCH ×3 (08:06→16:31)
[2021-12-28] MEDS: GLIPIZIDE 5 MG TAB PO SCH (08:06)
[2021-12-28] MEDS: INSULIN LISPRO 100 UNIT/1 ML 3ML VIAL SQ SCH ×4 (08:07→21:40)
[2021-12-28] MEDS ORDERED: AMLODIPINE BESYLATE 5 MG TAB PO ONE (15:15)
[2021-12-28] MEDS ORDERED: SOD POLYSTYRENE SULFONATE SUSP 15 GM/60 ML BTL PO ONE (15:15)
[2021-12-28] MEDS ORDERED: FUROSEMIDE INJ 10 MG/ML 2 ML VIAL IV ONE (15:15)
[2021-12-28] MEDS: REMDESIVIR 100MG 100 MG in SODIUM CHLORIDE 0.9% 100 ML IV SCH (16:31)
[2021-12-28] MEDS: DEXAMETHASONE SOD PHOS 10 MG/1 ML VIAL IV SCH (16:31)
[2021-12-28] MEDS: ENOXAPARIN 30 MG/0.3 ML SYR SC SCH (16:31)
[2021-12-28] MEDS ORDERED: ONDANSETRON HCL 4 MG ORAL DISINTEGRATING TAB PO PRN (18:30)
[2021-12-28] MEDS ORDERED: SODIUM CHLORIDE 0.9% 250ML 250 ML ONE (21:25)
[2021-12-28] MEDS: PANTOPRAZOLE SOD 40 MG TABEC PO SCH (21:40)
[2021-12-28] MEDS: ATORVASTATIN 40 MG TAB PO SCH (21:40)
[2021-12-29 01:28] VITALS: BP 134/81
[2021-12-29] MEDS: PIPERACILLIN/TAZOBACTAM 2.25 GM in SODIUM CHLORIDE 0.9% 50ML 50 ML IV SCH ×2 (05:40→14:00)
[2021-12-29 06:10] VITALS: BP 167/90
[2021-12-29 06:49] LABS: ANION GAP 21.7 mmol/L (8-16); CALCIUM 8.9 mg/dL (8.4-10.2); CREATININE, SERUM 7.16 mg/dL (0.57-1.11); POTASSIUM 5.7 mmol/L (3.5-5.1)
[2021-12-29] MEDS: INSULIN LISPRO 100 UNIT/1 ML 3ML VIAL SQ SCH ×3 (07:30→16:30)
[2021-12-29] MEDS: GLIPIZIDE 5 MG TAB PO SCH (07:30)
[2021-12-29 08:00] VITALS: BP_SYST 166; BP_SYST 167; BP_DIAS 89; BP_DIAS 90
[2021-12-29] MEDS: CALCIUM ACETATE 667 MG GELCAP PO SCH ×2 (08:00→12:00)
[2021-12-29] MEDS ORDERED: AMLODIPINE BESYLATE 5 MG TAB PO SCH (09:00)
[2021-12-29] MEDS: METOPROLOL TARTRATE 50 MG TAB PO SCH (09:00)
[2021-12-29] MEDS: CLOPIDOGREL BISULFATE 75 MG TAB PO SCH (09:00)
[2021-12-29] MEDS ORDERED: LACTULOSE SYRUP 20 GM/30 ML UDC PO ONE (09:30)
[2021-12-29 12:00] VITALS: BP 166/79
== END 2021-12-29 15:45 | disposition home or self-care (01) | DRG 177 ==
LOC: ER 23:06 → ERHOLD 12-25 00:57 → IMCU 12-25 02:30
PROVIDERS: ADMIT Internal Medicine; ATTEND Internal Medicine
PROC: 3E0333Z Introduction of Anti-inflammatory into Peripheral Vein, Percutaneous Approach (ICD-10-PCS; principal; 2021-12-25)
PROC: 8E0ZXY6 Isolation (ICD-10-PCS; 2021-12-25)
PROC: 5A1D70Z Performance of Urinary Filtration, Intermittent, Less than 6 Hours Per Day (ICD-10-PCS; 2021-12-25)
PROC: XW033E5 Introduction of Remdesivir Anti-infective into Peripheral Vein, Percutaneous Approach, New Technology Group 5 (ICD-10-PCS; 2021-12-25)
PROC: 5A0935A Assistance with Respiratory Ventilation, Less than 24 Consecutive Hours, High Flow/Velocity Cannula (ICD-10-PCS; 2021-12-26)
DX: U07.1 COVID-19 (principal); J12.82 Pneumonia due to coronavirus disease 2019; N18.6 End stage renal disease; J96.01 Acute respiratory failure with hypoxia; J81.0 Acute pulmonary edema; I12.0 Hypertensive chronic kidney disease with stage 5 chronic kidney disease or end stage renal disease; I16.1 Hypertensive emergency; E11.22 Type 2 diabetes mellitus with diabetic chronic kidney disease; D63.1 Anemia in chronic kidney disease; Z99.2 Dependence on renal dialysis; I25.10 Atherosclerotic heart disease of native coronary artery without angina pectoris; Z90.49 Acquired absence of other specified parts of digestive tract; Z95.5 Presence of coronary angioplasty implant and graft; E87.5 Hyperkalemia; E78.5 Hyperlipidemia, unspecified; Z87.442 Personal history of urinary calculi; Z82.49 Family history of ischemic heart disease and other diseases of the circulatory system; Z83.3 Family history of diabetes mellitus; Z84.89 Family history of other specified conditions
CPT/HCPCS: 36415; 36600; 71045; 71260; 80048; 80053; 82550; 82553; 82805; 82948; 83605; 83880; 84484; 85007; 85025; 85027; 85610; 85730; 86141; 86705; 86706; 87040; 87340; 90962; 93005; 93306; 94799; 96372; 99284; J0248; J0360; J0456; J0696; J1100; J1650; J1940; J2270; J2405; J2543; J7030; J7050; Q9967; U0002

== ENCOUNTER 2022-01-07 08:47 | Inpatient (IN) | payer MEDICARE, OTHER ==
[~2022-01-07] VITALS: Ht 157.5 cm; Wt 64.4 kg
[2022-01-07] VITALS (11 sets, daily range): BP systolic 148–174; BP diastolic 78–97
[~2022-01-07 08:47] MED LIST changes: +ATORVASTATIN CA20 MG PO; +CALCIUM ACETAT667 M1 PO; +GLIPIZIDE5 MG PO; +METOPROLOL TART25 MG PO; +PLAVIX75 MG PO; +PROTONIX20 MG PO
[2022-01-07 09:12] LABS: BASOPHILS # (AUTO) 0.1 (0.0-0.1); BASOPHILS % 0.5 % (0.0-1.0); EOSINOPHILS # (AUTO) 0.5 (0.0-0.4); EOSINOPHILS % 1.9 % (0.0-6.0); HEMATOCRIT 38.4 % (34.2-44.1); HEMOGLOBIN 11.3 g/dL (12.0-16.0); LYMPHOCYTES % 19.2 % (18.0-39.1); MEAN CORPUSCULAR HEMOGLOBIN 29.8 pg (28-32); MEAN CORPUSCULAR HGB CONC 29.4 g/dL (31-35); MEAN CORPUSCULAR VOLUME 101.3 fL (81-99); MONOCYTES # (AUTO) 1.1 (0.2-0.8); MONOCYTES % 4.2 % (4.4-11.3); NEUTROPHILS # (AUTO) 19.2 (2.1-6.9); NEUTROPHILS % 73.4 % (38.7-80.0); PLATELET COUNT 281 x10e3/uL (140-360); RED BLOOD COUNT 3.79 x10e6/uL (3.6-5.1)
[2022-01-07] MEDS ORDERED: FUROSEMIDE INJ 10 MG/ML 4 ML VIAL IV NR (09:15)
[2022-01-07] MEDS ORDERED: NITROGLYCERIN 2% OINT 1 GM PKT TOP ONE (09:15)
[2022-01-07 09:16] LABS: INR 0.94; PROTHROMBIN TIME 13.2 seconds (11.9-14.5)
[2022-01-07 09:23] LABS: ALBUMIN 3.6 g/dL (3.5-5.0); ALBUMIN/GLOBULIN RATIO 0.9 (0.8-2.0); ANION GAP 20.5 mmol/L (8-16); CALCIUM 9.5 mg/dL (8.4-10.2); CREATININE, SERUM 7.17 mg/dL (0.57-1.11); POTASSIUM 4.5 mmol/L (3.5-5.1)
[2022-01-07 09:36] LABS: B-TYPE NATRIURETIC PEPTIDE2 959.5 pg/mL (0-100)
[2022-01-07 10:14] LABS: ABG HCO3 26 mmol/L (22-26); ABG PCO2 46 mmHg (35-45); ABG PH 7.36 (7.35-7.45); ABG PO2 191 mmHg (80-105); ABG TCO2 27
[2022-01-07] MEDS: CEFEPIME 1 GM in SODIUM CHLORIDE 0.9% 50ML 50 ML IV SCH ×3 (10:30→21:30)
[2022-01-07] MEDS ORDERED: ONDANSETRON HCL INJ 2MG/ML 2ML 2 MG/ML VIAL IV PRN (10:45)
[2022-01-07] MEDS ORDERED: LORAZEPAM INJ 2 MG/ML VIAL IV NR ×2 (11:30→12:00)
[2022-01-07] MEDS ORDERED: METOPROLOL TARTRATE INJ 1 MG/ML VIAL IV NR (12:00)
[2022-01-07] MEDS ORDERED: DIGOXIN INJ 0.25 MG/ML 2 ML AMP IV NR (12:00)
[2022-01-07] MEDS ORDERED: METOPROLOL TARTRATE INJ 1 MG/ML VIAL IV PRN (12:00)
[2022-01-07] MEDS ORDERED: SODIUM CHLORIDE 0.9% 1000ML 2,000 ML ONE (12:30)
[2022-01-07] MEDS ORDERED: NICARDIPINE 20MG/200ML PREMIX 200 ML IV SCH (13:00)
[2022-01-07] MEDS ORDERED: Morphine 4mg Syringe 4 MG/ML INJ IV ONE (13:00)
[2022-01-07] MEDS ORDERED: LABETALOL HCL 5 MG/ML 20ML VIAL IV PRN (13:15)
[2022-01-07] MEDS ORDERED: Vancomycin IV 1 GM in SODIUM CHLORIDE 0.9% 250ML 250 ML IV ONE (13:15)
[2022-01-07] MEDS ORDERED: ALBUMIN 25% 12.5GM 0.25 GM/ML BTL IV PRN ×2 (13:30)
[2022-01-07] MEDS: CLOPIDOGREL BISULFATE 75 MG TAB PO SCH (17:42)
[2022-01-07] MEDS: METOPROLOL TARTRATE 25 MG TAB PO SCH (17:42)
[2022-01-07] MEDS ORDERED: ATORVASTATIN 20 MG TAB PO SCH (21:00)
[2022-01-08] VITALS (52 sets, daily range): BP systolic 94–186; BP diastolic 63–102
[2022-01-08 05:27] LABS: BASOPHILS % 0.1 % (0.0-1.0); HEMATOCRIT 32.9 % (34.2-44.1); HEMOGLOBIN 10.2 g/dL (12.0-16.0); LYMPHOCYTES # (AUTO) 0.8 (1.0-3.2); LYMPHOCYTES % 5.8 % (18.0-39.1); MEAN CORPUSCULAR HEMOGLOBIN 30.2 pg (28-32); MEAN CORPUSCULAR VOLUME 97.3 fL (81-99); MONOCYTES % 7.1 % (4.4-11.3); NEUTROPHILS # (AUTO) 12.3 (2.1-6.9); NEUTROPHILS % 86.6 % (38.7-80.0); PLATELET COUNT 180 x10e3/uL (140-360); RED BLOOD COUNT 3.38 x10e6/uL (3.6-5.1); RED CELL DISTRIBUTION WIDTH 14.8 % (11.7-14.4)
[2022-01-08 06:40] LABS: PHOSPHORUS 3.5 MG/DL (2.3-4.7)
[2022-01-08 06:43] LABS: ALBUMIN 3.3 g/dL (3.5-5.0); ANION GAP 19.7 mmol/L (8-16); CALCIUM 9.2 mg/dL (8.4-10.2); CREATININE, SERUM 8.04 mg/dL (0.57-1.11); POTASSIUM 5.7 mmol/L (3.5-5.1)
[2022-01-08] MEDS ORDERED: SODIUM CHLORIDE 0.9% 1000ML 2,000 ML IV PRN (07:30)
[2022-01-08] MEDS ORDERED: SODIUM CHLORIDE 0.9% 250ML 500 ML IV PRN (07:30)
[2022-01-08] MEDS ORDERED: CLOPIDOGREL BISULFATE 75 MG TAB PO SCH (09:00)
[2022-01-08] MEDS: METOPROLOL TARTRATE 25 MG TAB PO SCH ×4 (09:00→18:00)
[2022-01-08] MEDS: CLOPIDOGREL BISULFATE 75 MG TAB PO SCH (09:39)
[2022-01-08] MEDS: CEFEPIME 1 GM in SODIUM CHLORIDE 0.9% 50ML 50 ML IV SCH (12:10)
[2022-01-08] MEDS: LOSARTAN POTASSIUM 25 MG TAB PO SCH (17:13)
[2022-01-08] MEDS: ATORVASTATIN 40 MG TAB PO SCH (21:07)
[2022-01-09] VITALS (25 sets, daily range): BP systolic 110–180; BP diastolic 49–82
[2022-01-09 05:03] LABS: HEMATOCRIT 34.1 % (34.2-44.1); HEMOGLOBIN 10.3 g/dL (12.0-16.0); MEAN CORPUSCULAR HEMOGLOBIN 29.7 pg (28-32); MEAN CORPUSCULAR HGB CONC 30.2 g/dL (31-35); MEAN CORPUSCULAR VOLUME 98.3 fL (81-99); PLATELET COUNT 179 x10e3/uL (140-360); RED BLOOD COUNT 3.47 x10e6/uL (3.6-5.1)
[2022-01-09 05:21] LABS: ANION GAP 18.9 mmol/L (8-16); CALCIUM 9.3 mg/dL (8.4-10.2); CREATININE, SERUM 6.5 mg/dL (0.57-1.11); POTASSIUM 4.9 mmol/L (3.5-5.1)
[2022-01-09] MEDS: METOPROLOL TARTRATE 25 MG TAB PO SCH ×5 (05:36→19:12)
[2022-01-09 05:58] LABS: CHOL/HDL RATIO 6.9 (3.0-3.6); CHOLESTEROL 206 MD/DL (0-199); HDL CHOLESTEROL 30 MG/DL (40-60); TRIGLYCERIDES 530 MG/DL (0-149)
[2022-01-09 06:09] LABS: THYROID STIMULATING HORMONE 3.475 uIU/mL (0.350-4.940)
[2022-01-09 06:19] LABS: ALBUMIN 3.1 g/dL (3.5-5.0); ALBUMIN/GLOBULIN RATIO 0.9 (0.8-2.0); CALCIUM 9.2 mg/dL (8.4-10.2); CREATININE, SERUM 6.56 mg/dL (0.57-1.11)
[2022-01-09] MEDS: BALSAM PERU/CASTOR OIL 60 GM OINT...G. TP SCH (09:16)
[2022-01-09] MEDS: CEFEPIME 1 GM in SODIUM CHLORIDE 0.9% 50ML 50 ML IV SCH (09:28)
[2022-01-09] MEDS: LOSARTAN POTASSIUM 25 MG TAB PO SCH ×2 (09:29→16:29)
[2022-01-09] MEDS: CLOPIDOGREL BISULFATE 75 MG TAB PO SCH (09:29)
[2022-01-09] MEDS: ENOXAPARIN SOD INJ 40 MG/0.4 ML SYR SC SCH (21:43)
[2022-01-09] MEDS: ATORVASTATIN 40 MG TAB PO SCH (21:43)
[2022-01-10] VITALS (24 sets, daily range): BP systolic 100–171; BP diastolic 60–85
[2022-01-10] MEDS: METOPROLOL TARTRATE 25 MG TAB PO SCH ×2 (00:12→06:04)
[2022-01-10 05:06] LABS: BASOPHILS % 0.4 % (0.0-1.0); EOSINOPHILS # (AUTO) 0.2 (0.0-0.4); EOSINOPHILS % 2.4 % (0.0-6.0); HEMATOCRIT 33.2 % (34.2-44.1); HEMOGLOBIN 10.3 g/dL (12.0-16.0); LYMPHOCYTES # (AUTO) 1.9 (1.0-3.2); LYMPHOCYTES % 19.6 % (18.0-39.1); MEAN CORPUSCULAR HEMOGLOBIN 29.9 pg (28-32); MEAN CORPUSCULAR VOLUME 96.2 fL (81-99); MONOCYTES # (AUTO) 0.9 (0.2-0.8); MONOCYTES % 9.3 % (4.4-11.3); NEUTROPHILS # (AUTO) 6.4 (2.1-6.9); PLATELET COUNT 153 x10e3/uL (140-360); RED BLOOD COUNT 3.45 x10e6/uL (3.6-5.1); RED CELL DISTRIBUTION WIDTH 14.6 % (11.7-14.4)
[2022-01-10 05:38] LABS: ALBUMIN 3.1 g/dL (3.5-5.0); ALBUMIN/GLOBULIN RATIO 0.9 (0.8-2.0); ANION GAP 20.8 mmol/L (8-16); CALCIUM 9.1 mg/dL (8.4-10.2); CREATININE, SERUM 8.62 mg/dL (0.57-1.11); POTASSIUM 4.8 mmol/L (3.5-5.1)
[2022-01-10] MEDS: CEFEPIME 1 GM in SODIUM CHLORIDE 0.9% 50ML 50 ML IV SCH (08:12)
[2022-01-10] MEDS: LOSARTAN POTASSIUM 25 MG TAB PO SCH ×2 (08:14→17:07)
[2022-01-10] MEDS: BALSAM PERU/CASTOR OIL 60 GM OINT...G. TP SCH (08:15)
[2022-01-10] MEDS: CLOPIDOGREL BISULFATE 75 MG TAB PO SCH (08:15)
[2022-01-10] MEDS ORDERED: BALSAM PERU/CASTOR OIL 60 GM OINT...G. TP SCH (09:00)
[2022-01-10] MEDS: ENOXAPARIN SOD INJ 40 MG/0.4 ML SYR SC SCH (17:07)
[2022-01-10] MEDS: METOPROLOL TARTRATE 50 MG TAB PO SCH (18:06)
[2022-01-10] MEDS: ATORVASTATIN 40 MG TAB PO SCH (20:24)
[2022-01-11] VITALS (15 sets, daily range): BP systolic 109–168; BP diastolic 52–87
[2022-01-11 05:02] LABS: HEMATOCRIT 37.3 % (34.2-44.1); MEAN CORPUSCULAR HGB CONC 32.2 g/dL (31-35); MEAN CORPUSCULAR VOLUME 93.3 fL (81-99); PLATELET COUNT 151 x10e3/uL (140-360); RED CELL DISTRIBUTION WIDTH 14.5 % (11.7-14.4)
[2022-01-11 05:39] LABS: ANION GAP 23.6 mmol/L (8-16); CALCIUM 9.7 mg/dL (8.4-10.2); CREATININE, SERUM 5.39 mg/dL (0.57-1.11); POTASSIUM 4.6 mmol/L (3.5-5.1)
[2022-01-11] MEDS: CEFEPIME 1 GM in SODIUM CHLORIDE 0.9% 50ML 50 ML IV SCH (08:25)
[2022-01-11] MEDS: LOSARTAN POTASSIUM 25 MG TAB PO SCH ×2 (08:25→16:58)
[2022-01-11] MEDS: CLOPIDOGREL BISULFATE 75 MG TAB PO SCH (08:26)
[2022-01-11] MEDS: BALSAM PERU/CASTOR OIL 60 GM OINT...G. TP SCH (08:26)
[2022-01-11] MEDS: METOPROLOL TARTRATE 50 MG TAB PO SCH ×2 (08:26→16:59)
[2022-01-11] MEDS: AMLODIPINE BESYLATE 5 MG TAB PO SCH (16:59)
[2022-01-11] MEDS: ENOXAPARIN SOD INJ 40 MG/0.4 ML SYR SC SCH (16:59)
[2022-01-11] MEDS: ATORVASTATIN 40 MG TAB PO SCH (21:01)
[2022-01-12] VITALS (19 sets, daily range): BP systolic 92–150; BP diastolic 57–80
[2022-01-12] MEDS ORDERED: ONDANSETRON HCL 4 MG ORAL DISINTEGRATING TAB PO PRN (07:45)
[2022-01-12] MEDS: CEFEPIME 1 GM in SODIUM CHLORIDE 0.9% 50ML 50 ML IV SCH (08:47)
[2022-01-12] MEDS: CLOPIDOGREL BISULFATE 75 MG TAB PO SCH (08:48)
[2022-01-12] MEDS: BALSAM PERU/CASTOR OIL 60 GM OINT...G. TP SCH (09:00)
[2022-01-12] MEDS: LOSARTAN POTASSIUM 25 MG TAB PO SCH ×2 (09:00→17:00)
[2022-01-12] MEDS: AMLODIPINE BESYLATE 5 MG TAB PO SCH ×2 (09:00→17:00)
[2022-01-12 09:22] LABS: ANION GAP 23.9 mmol/L (8-16); CALCIUM 9.6 mg/dL (8.4-10.2); CREATININE, SERUM 7.84 mg/dL (0.57-1.11); POTASSIUM 4.9 mmol/L (3.5-5.1)
[2022-01-12] MEDS: METOPROLOL TARTRATE 50 MG TAB PO SCH ×2 (13:34→17:00)
[2022-01-12] MEDS ORDERED: METOPROLOL TART50 MG PO (17:24)
[2022-01-12] MEDS ORDERED: LOSARTAN POTASS25 MG PO (17:25)
[2022-01-12] MEDS ORDERED: AMLODIPINE BESYL5 MG PO (17:25)
== END 2022-01-12 19:45 | disposition home or self-care (01) | DRG 682 ==
LOC: ER 08:57 → ERHOLD 10:33 → ICU 15:49 → IMCU 01-10 19:04
PROVIDERS: ADMIT Internal Medicine; ATTEND Internal Medicine
PROC: 5A0935A Assistance with Respiratory Ventilation, Less than 24 Consecutive Hours, High Flow/Velocity Cannula (ICD-10-PCS; 2022-01-07)
PROC: 5A1D70Z Performance of Urinary Filtration, Intermittent, Less than 6 Hours Per Day (ICD-10-PCS; principal; 2022-01-09)
DX: I12.0 Hypertensive chronic kidney disease with stage 5 chronic kidney disease or end stage renal disease (principal); N18.6 End stage renal disease; J96.01 Acute respiratory failure with hypoxia; J81.0 Acute pulmonary edema; I16.1 Hypertensive emergency; Z99.2 Dependence on renal dialysis; I25.10 Atherosclerotic heart disease of native coronary artery without angina pectoris; E11.22 Type 2 diabetes mellitus with diabetic chronic kidney disease; I25.2 Old myocardial infarction; Z95.5 Presence of coronary angioplasty implant and graft; D63.8 Anemia in other chronic diseases classified elsewhere; R41.82 Altered mental status, unspecified; E87.5 Hyperkalemia; H92.01 Otalgia, right ear; U09.9 Post COVID-19 condition, unspecified; L89.152 Pressure ulcer of sacral region, stage 2; L89.322 Pressure ulcer of left buttock, stage 2
CPT/HCPCS: 36415; 36600; 51700; 70450; 70551; 71045; 80048; 80053; 80061; 82270; 82805; 82948; 83605; 83735; 83880; 84100; 84443; 84484; 85007; 85025; 85027; 85610; 86704; 86706; 87040; 87340; 90962; 93005; 94799; 97139; 99251; 99284; J0692; J1160; J1650; J1940; J2060; J2270; J3370; J7030; J7050; U0002

== ENCOUNTER 2022-06-18 03:14 | Inpatient (IN) | payer MEDICARE, OTHER ==
[~2022-06-18] VITALS: Ht 157.5 cm; Wt 69.4 kg
[2022-06-18] VITALS (18 sets, daily range): BP systolic 109–147; BP diastolic 62–76
[~2022-06-18 03:14] MED LIST changes: +AMLODIPINE BESYL5 MG PO; +LOSARTAN POTASS25 MG PO; +METOPROLOL TART50 MG PO
[2022-06-18] MEDS ORDERED: FUROSEMIDE INJ 10 MG/ML 10 ML VIAL IV ONE (03:30)
[2022-06-18] MEDS ORDERED: NITROGLYCERIN 2% OINT 1 GM PKT TOP ONE (03:30)
[2022-06-18 03:32] LABS: BASOPHILS % 0.3 % (0.0-1.0); EOSINOPHILS # (AUTO) 0.3 (0.0-0.4); EOSINOPHILS % 1.9 % (0.0-6.0); HEMATOCRIT 32.2 % (34.2-44.1); HEMOGLOBIN 10.3 g/dL (12.0-16.0); LYMPHOCYTES # (AUTO) 1.9 (1.0-3.2); LYMPHOCYTES % 13.2 % (18.0-39.1); MEAN CORPUSCULAR HEMOGLOBIN 31.1 pg (28-32); MEAN CORPUSCULAR VOLUME 97.3 fL (81-99); MONOCYTES # (AUTO) 0.6 (0.2-0.8); MONOCYTES % 4.3 % (4.4-11.3); NEUTROPHILS # (AUTO) 11.4 (2.1-6.9); NEUTROPHILS % 79.5 % (38.7-80.0); PLATELET COUNT 180 x10e3/uL (140-360); RED BLOOD COUNT 3.31 x10e6/uL (3.6-5.1); RED CELL DISTRIBUTION WIDTH 14.6 % (11.7-14.4)
[2022-06-18] MEDS ORDERED: FUROSEMIDE INJ 10 MG/ML 4 ML VIAL ONE (03:37)
[2022-06-18 03:49] LABS: ALBUMIN 3.7 g/dL (3.5-5.0); ALBUMIN/GLOBULIN RATIO 1.1 (0.8-2.0); ANION GAP 26.4 mmol/L (8-16); CALCIUM 8.4 mg/dL (8.4-10.2); CREATININE, SERUM 9.9 mg/dL (0.57-1.11)
[2022-06-18 03:53] LABS: POTASSIUM 6.4 mmol/L (3.5-5.1)
[2022-06-18] MEDS ORDERED: SODIUM BICARBONATE 8.4% INJ 50 ML SYR IV STA (03:53)
[2022-06-18] MEDS ORDERED: CALCIUM CHLORIDE 10% 1.36 MEQ/ML 10ML SYR IV STA (03:53)
[2022-06-18] MEDS ORDERED: DEXTROSE 50% SYRINGE 50 ML IV STA (03:53)
[2022-06-18 03:56] LABS: CREATINE KINASE MB 1.6 ng/mL (0-5.0)
[2022-06-18] MEDS ORDERED: DEXTROSE 50% SYRINGE 50 ML IV PRN (04:00)
[2022-06-18] MEDS ORDERED: INSULIN REGULAR, HUMAN 100 UNIT/1 ML IV ONE (04:00)
[2022-06-18] MEDS ORDERED: SODIUM CHLORIDE FLUSH 10 ML SYR INJ PRN (04:00)
[2022-06-18] MEDS ORDERED: CALCIUM CHLORIDE 10% SYRINGE 0 ML IV ONE (04:23)
[2022-06-18] MEDS ORDERED: ONDANSETRON HCL INJ 2MG/ML 2ML 2 MG/ML VIAL IV PRN (04:30)
[2022-06-18] MEDS ORDERED: ONDANSETRON HCL INJ 2MG/ML 2ML 2 MG/ML VIAL ONE (04:43)
[2022-06-18] MEDS: NICARDIPINE 20MG/200ML PREMIX 200 ML IV SCH (05:20)
[2022-06-18] MEDS: INSULIN REGULAR, HUMAN 100 UNIT/1 ML SQ SCH ×4 (07:30→21:00)
[2022-06-18] MEDS ORDERED: ASPIRIN CHEW81 MG PO (08:56)
[2022-06-18] MEDS: CLOPIDOGREL BISULFATE 75 MG TAB PO SCH (09:52)
[2022-06-18] MEDS: LOSARTAN POTASSIUM 25 MG TAB PO SCH ×2 (09:52→17:03)
[2022-06-18] MEDS: AMLODIPINE BESYLATE 5 MG TAB PO SCH ×2 (09:52→17:03)
[2022-06-18 09:58] LABS: CREATINE KINASE MB 1.6 ng/mL (0-5.0)
[2022-06-18] MEDS ORDERED: SODIUM CHLORIDE 0.9% 1000ML 1,000 ML ONE (12:28)
[2022-06-18] MEDS ORDERED: RENVELA0.8 GM PO (14:50)
[2022-06-18] MEDS ORDERED: ACETAMINOPHEN 325 MG TAB PO PRN (15:00)
[2022-06-18] MEDS: SEVELAMER CARBONATE 800 MG TAB PO SCH (15:57)
[2022-06-18 16:12] LABS: ANION GAP 20.3 mmol/L (8-16); CALCIUM 9.1 mg/dL (8.4-10.2); CREATININE, SERUM 4.98 mg/dL (0.57-1.11); POTASSIUM 4.3 mmol/L (3.5-5.1)
[2022-06-18 16:31] LABS: CREATINE KINASE MB 1.4 ng/mL (0-5.0)
[2022-06-18] MEDS: PANTOPRAZOLE SOD 40 MG TABEC PO SCH (21:09)
[2022-06-18] MEDS: ATORVASTATIN 40 MG TAB PO SCH (21:09)
[2022-06-19] VITALS (16 sets, daily range): BP systolic 118–154; BP diastolic 64–92
[2022-06-19] MEDS: NICARDIPINE 20MG/200ML PREMIX 200 ML IV SCH (03:45)
[2022-06-19] MEDS: INSULIN REGULAR, HUMAN 100 UNIT/1 ML SQ SCH ×4 (07:30→20:58)
[2022-06-19 07:50] LABS: BASOPHILS % 0.5 % (0.0-1.0); EOSINOPHILS # (AUTO) 0.2 (0.0-0.4); EOSINOPHILS % 2.3 % (0.0-6.0); HEMATOCRIT 29.2 % (34.2-44.1); HEMOGLOBIN 9.3 g/dL (12.0-16.0); LYMPHOCYTES # (AUTO) 1.5 (1.0-3.2); LYMPHOCYTES % 22.4 % (18.0-39.1); MEAN CORPUSCULAR HEMOGLOBIN 30.7 pg (28-32); MEAN CORPUSCULAR HGB CONC 31.8 g/dL (31-35); MEAN CORPUSCULAR VOLUME 96.4 fL (81-99); MONOCYTES # (AUTO) 0.6 (0.2-0.8); MONOCYTES % 8.5 % (4.4-11.3); NEUTROPHILS # (AUTO) 4.3 (2.1-6.9); PLATELET COUNT 143 x10e3/uL (140-360); RED BLOOD COUNT 3.03 x10e6/uL (3.6-5.1); RED CELL DISTRIBUTION WIDTH 14.8 % (11.7-14.4)
[2022-06-19] MEDS: SEVELAMER CARBONATE 800 MG TAB PO SCH ×3 (08:04→17:01)
[2022-06-19] MEDS: CLOPIDOGREL BISULFATE 75 MG TAB PO SCH (08:05)
[2022-06-19] MEDS: LOSARTAN POTASSIUM 25 MG TAB PO SCH ×2 (08:05→17:02)
[2022-06-19] MEDS: AMLODIPINE BESYLATE 5 MG TAB PO SCH ×2 (08:05→17:02)
[2022-06-19 08:08] LABS: CREATINE KINASE MB 1.1 ng/mL (0-5.0)
[2022-06-19 08:14] LABS: ALBUMIN 3.3 g/dL (3.5-5.0); ANION GAP 18.5 mmol/L (8-16); CALCIUM 9.1 mg/dL (8.4-10.2); CREATININE, SERUM 7.21 mg/dL (0.57-1.11); POTASSIUM 5.5 mmol/L (3.5-5.1)
[2022-06-19] MEDS ORDERED: SOD POLYSTYRENE SULFONATE SUSP 15 GM/60 ML BTL PO ONE (16:30)
[2022-06-19] MEDS: PANTOPRAZOLE SOD 40 MG TABEC PO SCH (20:57)
[2022-06-19] MEDS: ATORVASTATIN 40 MG TAB PO SCH (20:58)
[2022-06-20] VITALS (7 sets, daily range): BP systolic 132–158; BP diastolic 65–107
[2022-06-20 06:44] LABS: HEMATOCRIT 26.7 % (34.2-44.1); HEMOGLOBIN 8.5 g/dL (12.0-16.0); MEAN CORPUSCULAR HEMOGLOBIN 30.9 pg (28-32); MEAN CORPUSCULAR HGB CONC 31.8 g/dL (31-35); MEAN CORPUSCULAR VOLUME 97.1 fL (81-99); PLATELET COUNT 160 x10e3/uL (140-360); RED BLOOD COUNT 2.75 x10e6/uL (3.6-5.1); RED CELL DISTRIBUTION WIDTH 14.6 % (11.7-14.4)
[2022-06-20 07:13] LABS: ANION GAP 20.2 mmol/L (8-16); CALCIUM 8.8 mg/dL (8.4-10.2); CREATININE, SERUM 9.16 mg/dL (0.57-1.11); POTASSIUM 5.2 mmol/L (3.5-5.1)
[2022-06-20] MEDS: INSULIN REGULAR, HUMAN 100 UNIT/1 ML SQ SCH ×4 (07:30→21:00)
[2022-06-20] MEDS: SEVELAMER CARBONATE 800 MG TAB PO SCH ×3 (08:00→17:06)
[2022-06-20] MEDS: LOSARTAN POTASSIUM 25 MG TAB PO SCH ×2 (09:00→17:00)
[2022-06-20] MEDS: AMLODIPINE BESYLATE 5 MG TAB PO SCH ×2 (09:00→17:00)
[2022-06-20] MEDS: CLOPIDOGREL BISULFATE 75 MG TAB PO SCH (09:15)
[2022-06-20 10:33] LABS: EOSINOPHILS % (MANUAL) 2 % (0-7); LYMPHOCYTES % (MANUAL) 32 % (19-48); MONOCYTES % (MANUAL) 6 % (3.4-9.0); NEUTROPHILS % (MANUAL) 60 % (40-74); PLATELET ESTIMATE ADEQUATE; PLATELET MORPHOLOGY COMMENT NORMAL; RBC MORPHOLOGY COMMENT NORMAL
[2022-06-20] MEDS ORDERED: SODIUM CHLORIDE 0.9% 1000ML 2,000 ML ONE (17:17)
[2022-06-20] MEDS: PANTOPRAZOLE SOD 40 MG TABEC PO SCH (21:12)
[2022-06-20] MEDS: ATORVASTATIN 40 MG TAB PO SCH (21:13)
== END 2022-06-20 22:03 | disposition home or self-care (01) | DRG 291 ==
LOC: ER 03:20 → ERHOLD 04:05 → ICU 06:33 → MED/SURG3 06-19 14:40
PROVIDERS: ADMIT Internal Medicine; ATTEND Internal Medicine
PROC: 5A1D70Z Performance of Urinary Filtration, Intermittent, Less than 6 Hours Per Day (ICD-10-PCS; principal; 2022-06-18)
PROC: 5A09357 Assistance with Respiratory Ventilation, Less than 24 Consecutive Hours, Continuous Positive Airway Pressure (ICD-10-PCS; 2022-06-18)
DX: I13.2 Hypertensive heart and chronic kidney disease with heart failure and with stage 5 chronic kidney disease, or end stage renal disease (principal); I50.33 Acute on chronic diastolic (congestive) heart failure; J96.01 Acute respiratory failure with hypoxia; N18.6 End stage renal disease; I16.9 Hypertensive crisis, unspecified; E87.5 Hyperkalemia; E11.22 Type 2 diabetes mellitus with diabetic chronic kidney disease; E78.5 Hyperlipidemia, unspecified; D50.0 Iron deficiency anemia secondary to blood loss (chronic); I25.10 Atherosclerotic heart disease of native coronary artery without angina pectoris; Z99.2 Dependence on renal dialysis; Z95.1 Presence of aortocoronary bypass graft; Z95.5 Presence of coronary angioplasty implant and graft; Z90.49 Acquired absence of other specified parts of digestive tract; Z79.82 Long term (current) use of aspirin; Z79.84 Long term (current) use of oral hypoglycemic drugs; Z20.822 Contact with and (suspected) exposure to COVID-19; Z86.16 Personal history of COVID-19; Z87.442 Personal history of urinary calculi
CPT/HCPCS: 36415; 71045; 80048; 80053; 82550; 82553; 82948; 83880; 84132; 84484; 85007; 85025; 85027; 86704; 86705; 86706; 93005; 94660; 94799; 97139; 99251; 99285; J1817; J1940; J2405; J7030; J7799

== ENCOUNTER 2022-09-17 04:58 | Emergency (ER) | payer MEDICARE, OTHER ==
[~2022-09-17] VITALS: Ht 157.5 cm; Wt 69.4 kg
[~2022-09-17 04:58] MED LIST changes: +ASPIRIN CHEW81 MG PO; +RENVELA0.8 GM PO
[2022-09-17] MEDS ORDERED: LOPERAMIDE HCL 2 MG CAP ONE (05:40)
[2022-09-17] MEDS ORDERED: LOPERAMIDE HCL 2 MG CAP PO ONE (05:45)
== END 2022-09-17 05:23 | disposition home or self-care (01) ==
LOC: ER 05:02
DX: R19.7 Diarrhea, unspecified (principal); E11.22 Type 2 diabetes mellitus with diabetic chronic kidney disease; N18.6 End stage renal disease; Z99.2 Dependence on renal dialysis; E78.5 Hyperlipidemia, unspecified; Z95.5 Presence of coronary angioplasty implant and graft
CPT/HCPCS: 99282

== ENCOUNTER 2023-02-28 12:52 | Outpatient (RCR) | payer MEDICARE | END 2023-03-01 | LOC: PT 12:52 | PROVIDERS: ATTEND Specialist | DX: S39.012D Strain of muscle, fascia and tendon of lower back, subsequent encounter (principal); M43.16 Spondylolisthesis, lumbar region; M47.816 Spondylosis without myelopathy or radiculopathy, lumbar region; M48.061 Spinal stenosis, lumbar region without neurogenic claudication ==

== ENCOUNTER 2023-03-12 12:32 | Outpatient (RCR) | payer MEDICARE | END 2023-03-31 | LOC: PT 12:32 | PROVIDERS: ATTEND Specialist | DX: S39.012D Strain of muscle, fascia and tendon of lower back, subsequent encounter (principal); M43.16 Spondylolisthesis, lumbar region; M47.816 Spondylosis without myelopathy or radiculopathy, lumbar region; M48.061 Spinal stenosis, lumbar region without neurogenic claudication ==

== ENCOUNTER 2024-12-14 18:40 | Emergency (ER) | payer MEDICARE, OTHER ==
[~2024-12-14] VITALS: Ht 157.5 cm; Wt 63.5 kg
[2024-12-14 19:21] VITALS: PULSE 88; RESP 16; TEMP 99; O2SAT 96
[2024-12-14] MEDS ORDERED: TOBRAMYCIN 0.3% OPTH OINT 3.5 GM TUBE ONE (19:32)
[2024-12-14] MEDS: TOBRAMYCIN/DEXAMETHASONE(OPTH) 3.5 GM TUBE OP ONE (19:36)
== END 2024-12-14 19:59 | disposition home or self-care (01) ==
LOC: ER 19:20
DX: S00.212A Abrasion of left eyelid and periocular area, initial encounter (principal); X58.XXXA Exposure to other specified factors, initial encounter; I12.9 Hypertensive chronic kidney disease with stage 1 through stage 4 chronic kidney disease, or unspecified chronic kidney disease; E11.22 Type 2 diabetes mellitus with diabetic chronic kidney disease; N18.9 Chronic kidney disease, unspecified; Z99.2 Dependence on renal dialysis; E78.5 Hyperlipidemia, unspecified; Z95.5 Presence of coronary angioplasty implant and graft
CPT/HCPCS: 99283